=== PATIENT | male | born 1950 | race Caucasian/White ===

== ENCOUNTER → 2017-11-12 08:20 | Outpatient (CLI) | payer MEDICARE, SELFPAY ==
[2017-11-12 10:04] LABS: PSA,Total- Diagnostic 0.41 ng/mL (0.0-4.0)
== END ==
PROVIDERS: Family Provider Family Medicine; PCP Family Medicine; Visit Provider Urology
DX: C61 Malignant neoplasm of prostate (principal)
CPT/HCPCS: 36415; 84153

== ENCOUNTER → 2017-12-10 10:27 | Outpatient (CLI) | payer MEDICARE, SELFPAY ==
--- NOTE | 2017-12-10 10:42 | RAD_ITS ---
STUDY: X-RAY CHEST REASON FOR EXAM: Male, 67 years old. Preop clearance for knee surgery TECHNIQUE: PA and lateral views of the chest. COMPARISON: 04/11/2015 FINDINGS: The lungs are clear and expanded. There is no demonstrated pleural abnormality. Normal size heart. Normal mediastinum and kayleen. Normal visualized pulmonary arteries. Normal visualized aortic arch and descending thoracic aorta. Normal visualized thoracic spine. Normal visualized ribs, clavicles, and shoulders. There is no demonstrated abnormality of the visualized soft tissue structures of the upper abdomen. RAD/Chest PA and Lateral IMPRESSION: Normal x-ray examination of the chest. Electronically Signed: Jorge Blakely DO at 18:24 EDT Tel , Service support ,
--- NOTE | 2017-12-10 10:53 | EKG12_ITS ---
Test Reason : PRE OP Blood Pressure : / mmHG Vent. Rate : 051 BPM Atrial Rate : 051 BPM P-R Int : 190 ms QRS Dur : 092 ms QT Int : 412 ms P-R-T Axes : 061 005 020 degrees QTc Int : 379 ms Sinus bradycardia Low voltage QRS (LIMB LEADS) Confirmed by UMAIR MILLER ([id number]), television news video editor RADHA MANUEL ([id number]) on 12/11/2017 9:42:43 AM Referred By: Pedro Mueller Confirmed By:UMAIR MILLER
[2017-12-10 12:30] LABS: Hematocrit 41.6 % (40-54); Hemoglobin 14.4 g/dl (13.0-16.5); Mean Corp Hgb Conc 34.6 g/gl (32-36); Mean Corpuscular Hgb 30.1 pg (27.0-32.0); Mean Corpuscular Volume 86.8 fL (80-94); Mean Platelet Vol. 9.6 fl (6.2-12.0); Platelet Count 230 K/mm3 (150-450); RBC Distribution Width CV 13.2 % (11.6-14.6); RBC Distribution Width SD 41.7 fl (35.1-43.9); Red Blood Count 4.79 M/mm3 (4.6-6.2); White Blood Count 5.6 K/mm3 (4.4-11.0)
[2017-12-10 12:34] LABS: Scan Indicated on CBC? Y/N NO
[2017-12-10 12:56] LABS: ALB/GLOB Ratio 1.2 RATIO (0.9-2.4); AST(SGOT) 26 U/L (15-37); Alanine Aminotransfer ALT/SGPT 39 U/L (16-61); Albumin, Serum 3.9 g/dL (3.2-5.0); Alkaline Phosphatase 57 U/L (45-117); Anion Gap 6 (5-15); BUN 25 mg/dL (7-18); Calcium,Total 9.2 mg/dL (8.5-10.1); Chloride 103 mmol/L (98-107); Creatinine, Serum 1.25 mg/dL (0.70-1.30); EST Glomerular Filtration Rate 61 mL/min (>60); Est Glom Filt Rate - Afr Amer 74 mL/min (>60); Globulin 3.2 g/dL (2.2-4.2); Glucose 105 mg/dL (74-106); Potassium 4.2 mmol/L (3.5-5.1); Protein, Total 7.1 g/dL (6.4-8.2); Sodium Level 139 mmol/L (136-145)
== END ==
PROVIDERS: Family Provider Family Medicine; PCP Family Medicine; Visit Provider Orthopaedic Surgery
DX: Z01.818 Encounter for other preprocedural examination (principal); F17.200 Nicotine dependence, unspecified, uncomplicated
CPT/HCPCS: 36415; 71046; 80053; 85027; 93005

== ENCOUNTER → 2018-08-23 07:48 | Outpatient (CLI) | payer MEDICARE, SELFPAY ==
[2018-05-01 08:30] VITALS: BMI 28.5
[2018-08-23 09:01] LABS: AST(SGOT) 18 U/L (15-37); Alanine Aminotransfer ALT/SGPT 31 U/L (16-61); Albumin, Serum 3.6 g/dL (3.2-5.0); Alkaline Phosphatase 71 U/L (45-117); Bilirubin, Direct 0.12 mg/dL (0.00-0.30); Cholesterol 139 mg/dL (200); Globulin 3.3 g/dL (2.2-4.2); High Density Lipoprotein 43 mg/dL; Protein, Total 6.9 g/dL (6.4-8.2); Triglycerides 104 mg/dL; Very Low Density Lipoprotein 21 mg/dL (5-40)
== END ==
PROVIDERS: Family Provider Family Medicine; PCP Family Medicine; Referring Provider Internal Medicine Cardiovascular Disease; Visit Provider Internal Medicine Cardiovascular Disease
DX: E78.5 Hyperlipidemia, unspecified (principal); Z79.899 Other long term (current) drug therapy
CPT/HCPCS: 36415; 80061; 80076

== ENCOUNTER → 2018-12-16 07:59 | Outpatient (CLI) | payer MEDICARE, SELFPAY ==
[2018-10-20 08:51] VITALS: BMI 28.7
[2018-12-16 08:35] LABS: Absolute Lymphocyte Count 1.05 X10^3/ul (0.83-4.51); Absolute Neutrophil Count 3.4 X10^3/uL (2.0-7.7); Basophil# 0.03 X10^3/uL; Basophil% 0.6 % (0-1); Eosinophil# 0.19 X10^3/uL; Eosinophils% 3.8 % (0-5); Hematocrit 41.2 % (40-54); Hemoglobin 14.2 g/dl (13.0-16.5); Lymphocyte # 1.05 X10^3/ul (4.0); Lymphocyte % 20.8 % (19-41); Mean Corp Hgb Conc 34.5 g/gl (32-36); Mean Corpuscular Hgb 29.8 pg (27.0-32.0); Mean Corpuscular Volume 86.4 fL (80-94); Mean Platelet Vol. 9.7 fl (6.2-12.0); Monocyte# 0.37 X10^3/uL; Monocyte% 7.3 % (0-10); Neutrophil # 3.37 X10^3/uL (2.7-7.7); Neutrophil % 66.7 % (47-70); Platelet Count 210 K/mm3 (150-450); RBC Distribution Width CV 13.2 % (11.6-14.6); RBC Distribution Width SD 42.1 fl (35.1-43.9); Red Blood Count 4.77 M/mm3 (4.6-6.2); White Blood Count 5.1 K/mm3 (4.4-11.0)
[2018-12-16 08:38] LABS: POSITIVE COUNT NO; POSITIVE DIFFERENTIAL NO; POSITIVE MORPHOLOGY NO
[2018-12-16 09:07] LABS: ALB/GLOB Ratio 1.3 RATIO (0.9-2.4); AST(SGOT) 20 U/L (15-37); Alanine Aminotransfer ALT/SGPT 35 U/L (16-61); Albumin, Serum 3.9 g/dL (3.2-5.0); Alkaline Phosphatase 67 U/L (45-117); Anion Gap 5 (5-15); BUN 17 mg/dL (7-18); BUN/Creat Ratio 14.9 RATIO (10-20); Calcium,Total 8.8 mg/dL (8.5-10.1); Chloride 103 mmol/L (98-107); Cholesterol 134 mg/dL (200); Creatinine, Serum 1.14 mg/dL (0.70-1.30); EST Glomerular Filtration Rate 68 mL/min (>60); Est Glom Filt Rate - Afr Amer 82 mL/min (>60); Glucose 120 mg/dL (74-106); High Density Lipoprotein 38 mg/dL; Potassium 4.1 mmol/L (3.5-5.1); Protein, Total 6.9 g/dL (6.4-8.2); Sodium Level 140 mmol/L (136-145); Triglycerides 109 mg/dL
[2018-12-16 09:08] LABS: PSA,Total - Annual Screen 0.42 ng/mL (0.00-4.00); PSA,Total- Diagnostic 0.42 ng/mL (0.0-4.0); T4 Free Direct 1.02 ng/dL (0.76-1.46); Thyroid Stim Hormone (TSH) 2.36 uIU/mL (0.358-3.74); Very Low Density Lipoprotein 22 mg/dL (5-40)
[2018-12-16 14:26] LABS: Hemoglobin A1c 5.5 % (4.2-6.3)
== END ==
PROVIDERS: Family Provider Family Medicine; PCP Family Medicine; Referring Provider Urology; Visit Provider Urology
DX: Z00.01 Encounter for general adult medical examination with abnormal findings (principal); C61 Malignant neoplasm of prostate; R97.20 Elevated prostate specific antigen [PSA]; I10 Essential (primary) hypertension; R00.1 Bradycardia, unspecified; R73.01 Impaired fasting glucose; Z12.5 Encounter for screening for malignant neoplasm of prostate
CPT/HCPCS: 36415; 80053; 80061; 83036; 84153; 84439; 84443; 85025; G0103

== ENCOUNTER → 2019-05-01 08:06 | Outpatient (CLI) | payer MEDICARE, SELFPAY ==
[2018-10-20 08:51] VITALS: BMI 28.7
[2019-04-27 08:43] VITALS: BMI 27.4
--- NOTE | 2019-05-01 08:08 | CT_ITS ---
STUDY: LOW DOSE CT LUNG CANCER SCREENING REASON FOR EXAM: Male, 69 years old. Lung cancer screening, history of prostate cancer RADIATION DOSAGE (If Supplied By Facility): CTDIvol = ( 3.02 ) mGy, DLP = ( 108.72 ) mGycm TECHNIQUE: No contrast was administered. Low dose technique was utilized (average mAS-38 and kVp 120). 1.25 mm axial source images with a slice interval of 1.25-mm were reconstructed in lung windows. 2.5 mm axial source images with a slice interval of 2.5-mm were reconstructed in lung windows. 5.0 mm axial source images with a slice interval of 5.0-mm were reconstructed in soft tissue windows. Nodule measured using lung windows on PACS and/or independent workstation with automated measurement of minimum and maximum diameter. Nodule measurement reported as average diameter rounded to the nearest whole number. Growth is defined as an increase ins size of greater than 1.5 mm. COMPARISON: None. Findings: There is a 1 cm posterior segment left upper lobe lateral region groundglass nodule. There is a right upper lobe superior segment pleural contacting irregular less than 1 cm elongated branching nodule, likely atelectasis/scar. There are scattered pleural contacting the irregular scars/atelectasis in the lingula and right upper and right middle lobes. There are no focal high risk findings. Central airways are patent. Pleural surfaces are intact. Osseous structures are intact. CT/Low Dose CT Lung Screening IMPRESSION: 1. No high-risk findings. Presumed scattered scars/focal atelectasis. 2. Left upper lobe 1 cm ground glass nodule, LUNG-RADS category 2. 3. Follow-up in one year is advised. IMPORTANT NOTES FOR USE: ACR Lung-RADS Version 1.0 Assessment Categories Release Date: December 07, 2013 Category: Coded 0-4 bases on nodule(s) with highest degree of suspicion. Negative screen is defined as categories 1 and 2; a positive screen is defined as categories 3 and 4. Category 3 and 4A nodules that are unchanged on interval CT should be coded as category 2, and individuals returned to screening in 12 months. Category 4X: Category 3 or 4 nodules with additional imaging findings that increase the suspicion of lung cancer, such as spiculation, GGN that doubles in size in 1 year, enlarged lymph notes, etc. Category Modifiers: S (significant finding unrelated to lung cancer) and C (prior history of treated lung cancer) may be added to the 0-4 Lung-RADS Electronically Signed: Osvaldo Valles, at 17:59 EDT Tel , Service support ,
== END ==
PROVIDERS: Family Provider Family Medicine; PCP Family Medicine; Referring Provider Radiology Radiation Oncology; Visit Provider Radiology Radiation Oncology
DX: Z87.891 Personal history of nicotine dependence (principal)
CPT/HCPCS: G0297

== ENCOUNTER → 2019-05-22 14:53 | Outpatient (CLI) | payer MEDICARE, SELFPAY ==
[2019-04-27 08:43] VITALS: BMI 27.4
--- NOTE | 2019-05-22 15:05 | EKG12_ITS ---
Test Reason : PRE-OP Blood Pressure : / mmHG Vent. Rate : 048 BPM Atrial Rate : 048 BPM P-R Int : 182 ms QRS Dur : 090 ms QT Int : 422 ms P-R-T Axes : 028 -01 020 degrees QTc Int : 376 ms Marked sinus bradycardia Abnormal ECG Confirmed by SNOW OMER, ANA ([id number]), videotape editor RADHA MANUEL ([id number]) on 05/27/2019 8:39:09 AM Referred By: Jose Enrique Ramey Confirmed By:ANA ADAMSON MD
[2019-05-22 15:19] LABS: Hematocrit 40.6 % (40-54); Hemoglobin 13.8 g/dL (13.0-16.5); Mean Corpuscular Hgb 29.7 pg (27.0-32.0); Mean Corpuscular Volume 87.3 fL (80-94); Mean Platelet Vol. 9.3 fl (6.2-12.0); Platelet Count 211 K/mm3 (150-450); RBC Distribution Width CV 13.4 % (11.6-14.6); RBC Distribution Width SD 42.8 fl (35.1-43.9); Red Blood Count 4.65 M/mm3 (4.6-6.2); White Blood Count 5.6 K/mm3 (4.4-11.0)
[2019-05-22 15:29] LABS: Anion Gap 6 (5-15); BUN 17 mg/dL (7-18); Calcium,Total 9.2 mg/dL (8.5-10.1); Chloride 104 mmol/L (98-107); Creatinine, Serum 1.13 mg/dL (0.70-1.30); EST Glomerular Filtration Rate 68 mL/min (>60); Est Glom Filt Rate - Afr Amer 83 mL/min (>60); Glucose 97 mg/dL (74-106); Potassium 3.8 mmol/L (3.5-5.1); Sodium Level 139 mmol/L (136-145)
== END ==
PROVIDERS: Family Provider Family Medicine; PCP Family Medicine; Referring Provider Physician Assistant; Visit Provider Physician Assistant
DX: Z01.818 Encounter for other preprocedural examination (principal); Z01.810 Encounter for preprocedural cardiovascular examination
CPT/HCPCS: 36415; 80048; 85027; 93005

== ENCOUNTER → 2020-01-20 09:23 | Outpatient (CLI) | payer MEDICARE, SELFPAY ==
[2019-11-10 14:25] VITALS: BMI 27.4
[2020-01-20 12:47] LABS: PSA,Total - Annual Screen 0.42 ng/mL (0.00-4.00)
== END ==
PROVIDERS: PCP Family Medicine; Visit Provider Family Medicine
DX: Z12.5 Encounter for screening for malignant neoplasm of prostate (principal)
CPT/HCPCS: 36415; 84153; G0103

== ENCOUNTER → 2020-02-19 09:56 | Outpatient (CLI) | payer MEDICARE, SELFPAY ==
[2020-02-19 09:05] VITALS: BMI 27.1
[2020-02-19 11:13] LABS: AST(SGOT) 18 U/L (15-37); Alanine Aminotransfer ALT/SGPT 35 U/L (16-61); Alkaline Phosphatase 73 U/L (45-117); Bilirubin, Direct 0.16 mg/dL (0.00-0.30); Cholesterol 141 mg/dL (200); Globulin 3.1 g/dL (2.2-4.2); High Density Lipoprotein 38 mg/dL; Protein, Total 7.1 g/dL (6.4-8.2); Triglycerides 98 mg/dL; Very Low Density Lipoprotein 20 mg/dL (5-40)
== END ==
PROVIDERS: PCP Family Medicine; Referring Provider Internal Medicine Cardiovascular Disease; Visit Provider Internal Medicine Cardiovascular Disease
DX: E78.00 Pure hypercholesterolemia, unspecified (principal)
CPT/HCPCS: 36415; 80061; 80076

== ENCOUNTER → 2020-03-03 05:59 | Outpatient (CLI) | payer MEDICARE, SELFPAY ==
[2020-02-19 09:05] VITALS: BMI 27.1
[2020-02-24 08:40] VITALS: BMI 27.1
--- NOTE | 2020-03-03 06:00 | ECHOD_ITS ---
Reason For Study: CHEST PAIN Procedure This was a 2D Doppler, Color Flow transthoracic echocardiogram. Exam performed in department. Left Ventricle Normal LV size. Left ventricular systolic function is normal. The estimated ejection fraction is 55 %. The global longitudinal strain = -18 % (normal). No evidence for diastolic dysfunction. Right Ventricle Normal RV size. Normal systolic function. Atria Normal left atrium. Normal right atrium. No doppler evidence for ASD. Mitral Valve There is no mitral annular calcification. Normal mitral valve. Trivial mitral valve insufficiency. Tricuspid Valve Normal tricuspid valve. Trivial tricuspid valve insufficiency. Right ventricular systolic pressure estimated to be 32 mmHg. Aortic Valve Trisinus/trileaflet aortic valve. Mild focal aortic valve thickening. Pulmonic Valve The pulmonic valve is not well visualized. Great Vessels Normal sized aortic root. Pericardium/Pleural No pericardial effusion. MMode/2D Measurements & Calculations LVIDd: 4.2 cm IVSd: 0.80 cm Ao root diam: 3.5 cm LVIDs: 3.0 cm LVPWd: 0.82 cm RVDd: 3.2 cm FS: 28.6 % LAV(MOD-bp): 52.2 ml LVAd ap4: 33.7 cm2 LA A4 area: 16.8 cm2 LAV(MOD-bp) Indexed: 25.1 ml/m2 EDV(MOD-sp4): 102.5 ml LAV(MOD-sp2): 61.1 ml EDV(sp4-el): 107.7 ml LAV(MOD-sp4): 43.6 ml LA dimension(2D): 3.7 cm RA A4 area: 15.5 cm2 Time Measurements MV dec time: 0.28 sec Doppler Measurements & Calculations MV E max nathaniel: 75.8 cm/sec Lat Peak E' Nathaniel: 9.4 cm/sec Med Peak E' Nathaniel: 7.6 cm/sec MV A max nathaniel: 58.6 cm/sec E/E' lat: 8.1 E/E' med: 9.9 MV E/A: 1.3 Ao V2 max: 124.8 cm/sec LV V1 max: 111.0 cm/sec PA V2 max: 93.2 cm/sec Ao max P.2 mmHg LV V1 max P.9 mmHg TR max nathaniel: 268.3 cm/sec TR max P.8 mmHg Interpretation Summary Left ventricular systolic function is normal. The estimated ejection fraction is 55 %. The global longitudinal strain = -18 % (normal). Trivial mitral valve insufficiency. Trivial tricuspid valve insufficiency. Mild focal aortic valve thickening. Right ventricular systolic pressure estimated to be 32 mmHg. No evidence for diastolic dysfunction. Ordering Physician: Khris Gardiner Referring Physician: RHIANNON DICKSON Performed By: Florence Ram, LESLEY, RVT
--- NOTE | 2020-03-03 17:58 | STRESSREP ---
Stress Test Report Date: 03-03-2020 Procedure: Exercise tolerance test/imaging study Indications: Shortness of breath/dyspnea on exertion; chest pain Consent: Per the patient Procedure: The patient exercised on a Alfred protocol for 6 minutes and 14 seconds completing Stage II and 14 seconds of Stage III achieving a peak heart rate of 129 bpm (86 % predicted maximal heart rate) with a peak blood pressure 170/68 mmHg and a peak MET capacity of 7 METs. The baseline ECG demonstrated sinus bradycardia. The peak exercise ECG demonstrated somatic/motion artifact with no obvious ECG changes. There were no cardiac dysrhythmias pretest, during exercise, or recovery. The functional capacity was considered average. There was no complaint of chest discomfort during exercise or recovery. The examination was discontinued secondary to fatigue. Impression: 1. Technically adequate (percent predicted maximal heart rate greater than 85%) exercise tolerance test 2. Peak exercise ECG with somatic/motion artifact with no obvious ECG changes 3. There were no cardiac dysrhythmias pretest, during exercise, or recovery 4. Nuclear images pending Myocardial perfusion imaging study: Technique: The patient was injected with 14.8 mCi of technetium 99m Cardiolite and subsequently rest SPECT Cardiolite nuclear imaging was obtained in the horizontal long, vertical long, and short axis views. The patient exercised on a Alfred protocol for 6 minutes and 14 seconds completing Stage II and 14 seconds of Stage III achieving a peak heart rate of 129 bpm (86 % predicted maximal heart rate) with a peak blood pressure 170/68 mmHg and a peak MET capacity of 7 METs. The patient was injected with 44.3 mCi of technetium 99m Cardiolite and subsequently stress SPECT Cardiolite nuclear imaging was obtained in the horizontal long, vertical long, and short axis views. A gated Cardiolite study at peak stress was obtained. Interpretation: Rest and stress SPECT Cardiolite nuclear imaging status post realignment, normalization, and attenuation correction, demonstrates the appearance of relative uniform tracer uptake and myocardial perfusion appearing within normal limits. There is end systolic thickening and brightening. The gated Cardiolite study demonstrates myocardial thickening and inward wall motion. The reported LVEF is 70 %. Impression: 1. Rest and stress SPECT Cardiolite nuclear imaging demonstrate relative uniform tracer uptake and myocardial perfusion appearing within normal limits. 2. The gated Cardiolite study reports an LVEF of 70 %. This note was generated with [employer] software. It may contain incorrect words, spelling, and punctuation that were not noted in checking the note before signing.
== END ==
PROVIDERS: PCP Family Medicine; Referring Provider Internal Medicine Cardiovascular Disease; Visit Provider Internal Medicine Cardiovascular Disease
DX: R07.9 Chest pain, unspecified (principal); R06.09 Other forms of dyspnea; I20.1 Angina pectoris with documented spasm
CPT/HCPCS: 78452; 93017; 93306; A9500; A4216

== ENCOUNTER 2020-03-14 10:07 | Day surgery (SDC) | payer MEDICARE, SELFPAY ==
[2020-02-24 08:40] VITALS: BMI 27.1
--- NOTE | 2020-03-14 | LES_PTH ---
PATIENT: JUAN ANTONIO BRYANT LOC: [facility] [place][id number] AGE/SX: 70/M ROOM: RE03/14/[address]: Dr. Ld Andre MD : 1950 BED: DIS: 03/14/2020 SPEC #: [id number] RECD: 03/14/20 13:42 STATUS: BRETT RETelly #: [id number] RODRIGUEZ: 03/14/20 00:[address]: Ld Andre DEPT: SURGICAL PATHOLOGY RECD BY: Yoli Moore ENTERED: 03/14/20 14:13 SP TYPE: Lesion OTHR DR: Dr. Artis Lemus DO Tissues: A - Skin of lip, NOS B - Skin of lip, NOS Procedures: Frozen Section (charge) Surgery Specimen Level IV HEADER OPERATION: Excision lesion lower lip with frozen section, lip flap PRE-OP DIAGNOSIS: 1.2 cm lesion left lower lip near commissure TISSUE SUBMITTED: A - Lesion left lower lip, FS at 1339, B - Basal cell carcinoma lower lip FROZEN SECTION DIAGNOSIS A. Skin lesion, left lower lip, shave biopsy: Basal cell carcinoma extending to based lesion margin. AM:syed 03/14/20 Case has been reviewed in consultation with Dr. Camarena who concurs with the above diagnosis. IDC:SJ MICROSCOPIC DIAGNOSIS A. Skin lesion, left lower lip, shave biopsy: Basal cell carcinoma extending to the deep resection margin. Solar elastosis. B. Basal cell carcinoma lower lip, excision: Basal cell carcinoma. Recent mucosal ulceration. Solar elastosis. See comment. AM:syed 03/16/20 COMMENT B. The lesion measures 8 mm in greatest dimension (from slides) and is completely excised in the planes examined. Case has been reviewed in consultation with Dr. Camarena who concurs with the above diagnosis. IDC:SJ MICROSCOPIC DESCRIPTION Slides are reviewed. GROSS DESCRIPTION A - Received fresh for frozen section consultation labeled with the patient's name is a specimen designated left lower lip skin. The specimen consists of a 1.2 cm discoid shaved skin with an average thickness of 1 mm. The specimen is inked, trisected and totally submitted in one block for frozen section consultation. / AM:syed 03/15/20 B - Received in fixative is one container labeled with the patient's name is a specimen designated basal cell carcinoma left lower lip. The specimen consists of a piece of guerrero-white skin ellipse measuring 2.6 x 1.5 cm and up to 1 cm in thickness. A suture is present at the tip, presumed to be 12 o'clock. The specimen is inked as follows: sutured tip, presumed to be 12 o'clock - yellow, opposite tip - 6 o'clock - green, 3 o'clock margin - black and 9 o'clock margin - blue. An area of ulceration is noted measuring 1?cm in greatest dimension, consistent with site of specimen A. In the container are three pieces of tanwhite skin measuring 0.6 x 0.1 x 0.1 cm and 1 x 0.2 x 0.2 cm and 1 x 0.5 x 0.3 cm. The largest of one?of the additional pieces is bisected. The entire specimen is submitted in four cassettes as follows: 13 - largest piece of skin (1 containing tip and 2 rest of the largest piece), 4 - additional smaller pieces. / SJ:syed 03/15/20 TC:0 CPT: 14431 x2, 45617
--- NOTE | 2020-03-14 09:17 | PCM.HP.BLA ---
History and Physical Date of Admission: 03/14/20 HISTORY OF PRESENT ILLNESS 70 year old man presents with a lesion on his left lower lip near the commissure that has increased in size over the last year and has become more raised in configuration and has developed irregular borders. He denies trauma. He denies infection. He denies fever. He states he is scheduled for a stress test on 03/03/20. He presents at this time for further evaluation and treatment. PAST MEDICAL HISTORY Neoplasm of skin of lip Pure hypercholesterolemia Essential hypertension Bradycardia Coronary artery spasm Back problem Hearing problem Diverticulitis GERD (gastroesophageal reflux disease) History of prostate cancer Chest pain Dyspnea History of left heart catheterization (LHC) Hyperlipidemia Hypertension PAST SURGICAL HISTORY appendectomy knee surgery left knee surgery right knee surgery left heart catheterization ALLERGIES Sulfa (Sulfonamide Antibiotics) MEDICATIONS Meloxicam [Mobic] lisinopril-hydrochlorothiazide omeprazole nitroglycerin FAMILY HISTORY Father - Myocardial infarction, Heart disease Mother - CVA (cerebral vascular accident), CAD (coronary artery disease) Brother - Myocardial infarction SOCIAL HISTORY Smoking Status: Former smoker how long ago did patient quit smokin alcohol intake: former year quit: 2006 substance use type: does not use REVIEW OF SYSTEMS General - Denies fever, fatigue, and weight loss. Eyes - Denies cataracts and glaucoma. ENT - Denies nasal congestion and sore throat. Endocrine - Denies excessive thirst and urination. Skin - Denies skin cancer. Has enlarging lesion left lower lip near commissure. Musculoskeletal - Has joint pain, joint stiffness, weakness of muscles and joints, back pain. Denies arthritis. Neuro - Denies headaches. Has lightheadedness. Cardiovascular - Denies chest pain, fatigue, and shortness of breath with exertion. Psych - Denies anxiety and depression. Respiratory - Denies chronic cough and shortness of breath. Gastrointestinal - Denies nausea, vomiting, diarrhea, and constipation. Hematologic - Denies abnormal bruising and bleeding. Genitourinary - Denies hematuria and urinary frequency. PHYSICAL EXAMINATION General - Alert and Oriented HEENT - PERRL. EOMI. Throat is clear. On the left lower lip extending to the raulito border is a nodular lesion that measures 1.2 cm. Raised in configuration. Has irregular borders. No ulceration. Lesion is nontender. The lesion is located 1.2 cm from the commissure. The length of the lower lip is 7 cm. No other suspicious lesions noted. Neck - Supple and nontender. No cervical adenopathy. No suspicious lesions noted. Lungs - Clear to auscultation. Heart - Regular rate and rhythm. Abdomen - Soft and nondistended. Extremities - FROM. No axillary adenopathy. Radial pulses are palpable. No suspicious lesions noted. Neuro - CN II-XII grossly intact. Psych - Normal mood and affect. ASSESSMENT 1. 1.2 cm lesion left lower lip extending to the raulito border and near the commissure, suspicious for carcinoma. 2. Former smoker. PLAN The lesion left lower lip near the commissure is clinically suspicious for carcinoma. Recommend excision of the lesion in an intradermal fashion and send it to Pathology for analysis to rule out carcinoma. If basal cell carcinoma is present, then further excision will be done with lip flaps reconstruction. If squamous cell carcinoma is present, then further excision will be done, but no reconstruction will be done initially until the final Pathology report is available. To maintain oral continuity, would temporarily secure the defect with acellular dermal matrix graft. Once the Pathology is available, then complex lip reconstruction can be performed with lip flaps. Also discussed with the patient that the excision can be done with Moh's micrographic surgery but would need to be done out of town. He prefers to stay local in town at this time. Surgery can be done on an outpatient basis under local anesthesia with IV sedation. He understands that multiple procedures may be necessary. Patient was informed of the risks and complications of the procedure including alternatives to surgery. These were discussed with the patient personally. Patient voices understanding and wishes to proceed. Some of the risks and complications were included in a form from the [place] [employer]. We discussed the current risks associated with COVID-19. While it is understood that there is a community spread of COVID-19, the risk of [place] COVID-19 while at [facility] ([facility]) is very low; however, the risk cannot be completely mitigated because of the community spread of the disease. We discussed in detail the risk of exposure to and/or potential harm posed by the COVID-19 virus with having a surgery/procedure at this time versus the risk of delaying the surgery/procedure. It is not possible to know either the risk of delaying the surgery or procedure or chance of getting an infection with perfect accuracy, but a joint decision was made to proceed at this time with the scheduled surgery/procedure as indicated on the consent form. Patient was notified that we will need to comply with any screening or testing WC wishes to perform or that surgery may be delayed for any positive results. Discussed with the patient that I was tested for COVID-19 on 02/11/20 which was negative and on 02/25/20 which was negative. My testing regimen at this time is to be COVID-19 tested every 2 weeks or so. I was recently tested on 03/10/20, and that test was negative. Procedure Criteria Procedure Type: Elective COVID Risk Discussion: The surgeon/proceduralist and patient have discussed in detail the risk of exposure to and/or potential harm posed by the COVID-19 virus with having a surgery/procedure at this time versus the risk of delaying the surgery/procedure. It is not possible to know either the risk of delaying the surgery or procedure or chance of getting an infection with perfect accuracy, but a joint decision was made between the patient and the surgeon/proceduralist to proceed at this time with the scheduled surgery/procedure as indicated on the consent form.
[2020-03-14 12:05] VITALS: BP 148/80; PULSE 45; RESP 16; TEMP 36.5; O2SAT 100; BMI 27.7
[2020-03-14] MEDS: Lactated Ringers 1,000 ML 100 ML IV (12:30)
[2020-03-14] MEDS: Mupirocin Ointment 22gm Tube 1 APPLIC (14:45)
--- NOTE | 2020-03-14 14:48 | PCM.OPRPT ---
Report of Operation Date of Procedure: 03/14/20 Pre-Operative Diagnosis: 1. 1.2 cm lesion left lower lip extending to the raulito border and near the commissure, suspicious for carcinoma. 2. Former smoker. Post-Operative Diagnosis: 1. 1.2 cm basal cell carcinoma left lower lip extending to the raulito border and near the commissure. 2. Former smoker. Surgery/Procedure Performed:: V-excision 1.2 cm basal cell carcinoma left lower lip extending to the raulito border and near the commissure with 3 cm complex closure repair. Description of Surgical Findings:: 70 year old man presents with a lesion on his left lower lip near the commissure that has increased in size over the last year and has become more raised in configuration and has developed irregular borders. He denies trauma. He denies infection. He denies fever. He states he is scheduled for a stress test on 03/03/20. Patient was informed of the risks and complications of the procedure including alternatives to surgery. These were discussed with the patient personally. Patient voices understanding and wishes to proceed. Some of the risks and complications were included in a form from the [employer] [employer]. Frozen section left lower lip near the commissure - basal cell carcinoma. synthetic staple extruder: None Type of Anesthesia:: General Specimen's removed: 1. Lesion left lower lip extending to the raulito border and near the commissure to Pathology as a frozen section. 2. Basal cell carcinoma left lower lip extending to the raulito border and near the commissure to Pathology. Drains: None. Estimated Blood Loss (mL): 10 ml. Description of Procedure: Patient was taken to OR in supine position and was given IV sedation. The face was prepped and draped in the usual fashion. SCD's were placed for DVT prophylaxis. Perioperative antibiotics were given intravenously. For the procedure, I wore an N95 mask and wore proper eyewear protection. The lesion left lower lip extending to raulito border and near the commissure was infiltrated with xylocaine and epinephrine. After waiting 5 minutes for the anesthetic to take effect, I excised the lesion in an intradermal fashion and sent it to Pathology as a frozen section for analysis to rule out carcinoma. Frozen section was positive for basal cell carcinoma. Further excision was needed, so I marked out a V-excision design extending to the labiomental crease. If additional length is needed then wound design a lip flap with the marking extending along the labiomental crease in order to advance the flap into the defect without disturbing the labiomental crease. 4 mm margin was designed in all directions thus making it a 2 cm excision. At the raulito border, the marking intersected at 90 degrees. Toward the labiomental crease, it became a V-excision. During this time, it was difficult to maintain the patient with sedation as his tongue was falling back in his mouth and obstructing him. So he was converted to a general anesthetic. The face was then re-prepped and draped in the usual fashion. A full thickness excision was performed through the skin and subcutaneous tissue and orbicularis muscle and extending onto the raulito through the mucosa and submucosa. A suture was marked at 12 oclock position for pathology orientation. The lesion was then sent to Pathology for analysis to rule out carcinoma at the margins. Hemostasis was obtained with electrocautery. This was a 2 cm lip defect with a lower lip length of 7 cm thus making it a 28% defect which can be closed primarily. A complex multilayered closure was then performed with 4-0 Chromic simple interrupted sutures for the mucosa and submucosa. The orbicularis muscle was approximated with 3-0 Vicryl figure of eight interrupted sutures to maintain oral muscular competence. The deep dermis and subcutaneous tissue was approximated with 5-0 Monocryl interrupted sutures including the raulito border. The skin was approximated with 6-0 Prolene simple interrupted sutures. The raulito border was also approximated with 6-0 Prolene interrupted suture. Steri-strips were applied to the skin portion of the repair followed by antibiotic ointment. Antibiotic ointment was also applied to the raulito sutures. Good lip contour noted. The length of the complex closure repair was 3 cm. Patient tolerated the procedure well and was sent to PACU in satisfactory condition. Patient will be sent home on antibiotics and pain medication. He will also use mouthwash after meals to minimize infection during the healing of the intra-oral mucosal sutures. He will keep his head elevated during the initial postoperative period. Patient will followup in a week for a wound check and for discussion of the pathology report and for removal of the sutures. Grafts/Implants Used: None. - Complications None. - Admit VTE Documentation VTE Present on Admission: No VTE Mechan Device Prophylaxis: SCD's VTE Pharm Prophylaxis ordered?: No Surgery Charges CPT - 51719 ICD-10 - C44.01, D49.2, Z87.891 19860 C44.01, D49.2, Z87.891
[2020-03-14 14:57] VITALS: BP 148/80; BP 162/88; PULSE 59; RESP 20; TEMP 36.1; O2SAT 100
[2020-03-14 15:00] VITALS: BP 148/78; BP 148/80; PULSE 58; RESP 16; O2SAT 98
--- NOTE | 2020-03-14 15:13 | DCINST_ITS ---
You will use the following diet at home:: No restrictions Discharge Activity: May not drive while taking narcotic pain medications., May Shower - in two days., - - keep head elevated. no heavy lifting. May shower in (days): 2 May resume sexual activity in: No Restrictions Ice area for (Minutes): 5 - as needed for facial swelling. Weight Bearing Status: Weight bearing as tolerated Lifting Restrictions: 20 lbs. Keep extremity elevated above heart level: - - elevate head. Call your doctor if your incision/area has: Continuous Slow Oozing, Sudden Increased Bleeding, Increased Pain/ Swelling, Increased Redness, Foul Smelling Discharge, Swelling at the incision site Call your doctor if you observe: Fever of 101 or Higher, Coldness, Increased Pain, Shortness of breath, Chest pain, Calf discomfort Suture Line Care: - - apply antibiotic ointment to suture line daily. Use mouthwash after meals. Cleanse incision/area with: - - may get incision wet in the shower in two days. use mouthwash after meals. Allergies/Adverse Reactions: Allergies Sulfa (Sulfonamide Antibiotics) Allergy (Verified 03/14/20 12:03) Unknown Medications to take at Discharge Meloxicam [Mobic] 15 mg PO DAILY 04/17/16 lisinopril 10 mg-hydrochlorothiazide 12.5 mg tablet 1 tab PO DAILY 10/20/18 omeprazole 20 mg capsule,delayed release 20 mg PO DAILY 10/20/18 nitroglycerin 0.4 mg sublingual tablet 0.4 mg SUBLINGUAL Q5M PRN #90 tab 11/10/19 Clindamycin HCl [Cleocin] 300 mg PO TID #15 cap 03/14/20 Diazepam [Valium] 5 mg PO BID PRN #10 tablet 03/14/20 Lactobacillus Acidophilus/Fos [Acidophilus Probiotic Tablet] 1 ea PO BID #20 tab 03/14/20 Oxycodone HCl/Acetaminophen [Percocet 5/325] 1 tab PO Q6H PRN PRN 7 Days #28 tab 03/14/20 The following prescriptions were given: Lactobacillus Acidophilus/Fos [Acidophilus Probiotic Tablet] 1 ea PO BID #20 tab Transmission Status: Pending to [facility] #30 Clindamycin HCl [Cleocin] 300 mg PO TID #15 cap Transmission Status: Pending to [facility] #[facility] Oxycodone HCl/Acetaminophen [Percocet 5/325] 1 tab PO Q6H PRN PRN 7 Days #28 tab PRN Reason: Pain Score 4-5/10 Transmission Status: Sent to [facility] #30 Diazepam [Valium] 5 mg PO BID PRN #10 tablet PRN Reason: Spasms Transmission Status: Sent to [facility] #30 Primary Care Physician: Artis Lemus DO [Primary Care Provider] - Test Results: Test results from this visit will be discussed in further detail at your follow- up appointment, if applicable. Please Follow Up With: Ld Andre MD When: one week. call [phone] for appt. Proposed Discharge Date: 03/14/20
[2020-03-14 15:17] VITALS: BP 148/80; BP 150/79; PULSE 50; RESP 16; TEMP 36.2; O2SAT 100
[2020-03-14 16:01] VITALS: BP 148/80; BP 161/93; PULSE 47; RESP 18; TEMP 36.3; O2SAT 100
== END 2020-03-14 16:03 | disposition home or self-care (01) ==
LOC: SDC 10:08 → AC 11:09
PROVIDERS: Anesthesiology; PCP Family Medicine; Referring Provider Surgery; Visit Provider Surgery
PROC: (CPT 13152; principal; 2020-03-14 13:05)
DX: C44.01 Basal cell carcinoma of skin of lip (principal); I10 Essential (primary) hypertension; E78.00 Pure hypercholesterolemia, unspecified; K21.9 Gastro-esophageal reflux disease without esophagitis; Z79.899 Other long term (current) drug therapy; Z87.891 Personal history of nicotine dependence; Z20.828 Contact with and (suspected) exposure to other viral communicable diseases
CPT/HCPCS: 00300; 13152; 40520; 87635; 88305; 88331; J7120; U0003

== ENCOUNTER 2020-06-18 10:43 | Emergency (ER) | payer MEDICARE, SELFPAY ==
[2020-05-11 08:29] VITALS: BMI 27.7
[2020-06-18 10:44] VITALS: BP 147/78; PULSE 57; RESP 20; TEMP 36.6; O2SAT 99; BMI 28.7
--- NOTE | 2020-06-18 11:09 | CT_ITS ---
STUDY: CT ABDOMEN AND PELVIS WITHOUT CONTRAST REASON FOR EXAM: Male, 70 years old. RIGHT FLANK PAIN -- HX-PROSTATE CA W/ RAD TX -- SURG-APPY RADIATION DOSAGE (If Supplied By Facility): CTDIvol = ( 8.14 ) mGy, DLP = ( 398.58 ) mGycm TECHNIQUE: Transaxial images were obtained from the dome of the diaphragm to the symphysis pubis without oral contrast, and without intravenous contrast. Sagittal and coronal images were reconstructed. Individualized dose optimization techniques were used for this CT. COMPARISON: 06/01/2016 FINDINGS: The visualized lung bases are unremarkable. The visualized portions of the heart are within normal limits. Normal liver. Normal gallbladder and extrahepatic biliary system. Normal spleen. Normal pancreas. Normal bilateral adrenal glands. Small bilateral renal calcifications likely vascular. No evidence of hydronephrosis. There is a small hiatal hernia. Nonspecific fluid-filled small bowel loops. No evidence of small bowel obstruction. Diverticulosis of the sigmoid colon. No evidence of acute diverticulitis. There is non-visualization of the appendix. There is diffuse atherosclerotic calcification of the abdominal aorta, without a demonstrated aneurysm. Normal inferior vena cava. Normal retroperitoneum. Normal urinary bladder. Radiation seeds or surgical clips in the region of the prostate. No pelvic mass is seen. Small bilateral inguinal hernias containing fat. There are diffuse degenerative changes of the visualized lumbar spine. CT/Abdomen/Pelvis without Cont IMPRESSION: 1. No evidence of urinary tract stones or hydronephrosis. 2. Small hiatal hernia. 3. Diverticulosis without evidence of acute diverticulitis. 4. Nonspecific fluid-filled small bowel loops without evidence of bowel obstruction. 5. Small bilateral inguinal hernias containing fat. Electronically Signed: Aristeo Gillis MD at 12:01 EST Tel , Service support ,
--- NOTE | 2020-06-18 11:20 | ED.VIS.GEN ---
History of Present Illness Informant: Patient Onset: Today Context: Sudden Onset Timing: Continuous Quality: Right flank sharp Location: Right flank Current Severity: Severe Maximum Severity: Severe Worsened by: Nothing Relieved by: Nothing Associated Symptoms: nausea and vomiting Narrative: 70-year-old male presents with right flank pain. It woke him up suddenly at 5 AM this morning. Sharp and stabbing. He cannot get comfortable. He radiates to his right lower quadrant. He had one episode of nonbloody emesis. No hematemesis or coffee-ground emesis. No diarrhea melena or hematochezia. No dysuria, urinary frequency urgency or hematuria. No difficulty urinating. No history of kidney stones. He has no chest pain or shortness of breath. He is not lightheaded or dizzy. He is not anticoagulation. Prior similar symptoms: No Recent Illness/Hospitalization: No <Antonio Arreguin - Last Filed: 06/18/20 11:20> <Stephen Jones - Last Filed: 06/18/20 15:46> Chief Complaint: Flank Pain Past Medical History Prior records reviewed: Yes Past Medical History: - - Hypertension hyperlipidemia and osteoarthritis Surgical History: appendectomy Lives: With Family Smoking Status: Current every day smoker Alcohol: Occasional Drugs: None <Antonio Arreguin - Last Filed: 06/18/20 11:20> <Stephen Jones - Last Filed: 06/18/20 15:46> - Allergies and Home Meds Allergies/Adverse Reactions: Allergies Sulfa (Sulfonamide Antibiotics) Allergy (Verified 06/18/20 10:46) Unknown Primary Care Physician: Artis Lemus DO [Primary Care Provider] - Review of Systems All systems negative except as indicated General: Denies: Chills, Fever, Sweats Eyes: Denies: Visual changes - bilaterally, Diplopia ENT: Denies: Rhinorrhea, Sore throat Cardiovascular: Denies: Chest pain, Palpitations Respiratory: Denies: Dyspnea, Cough, Dyspnea on exertion Gastrointestinal: Reports: Abdominal pain, Nausea, Vomiting. Denies: Diarrhea, Constipation, Melena, Hematochezia Genitourinary: Denies: Dysuria, Hematuria, Frequency Musculoskeletal: Denies: Myalgias, Arthralgias, Neck pain, Back pain, Swelling, Extremity Pain Skin: Denies: Rash, Abscess, Abrasions, Wounds Neurological: Denies: Headache, Weakness, Parasthesia, Numbness <Antonio Arreguin - Last Filed: 06/18/20 11:20> Physical Exam Vital Signs/Narrative: Vital Signs Temp Pulse Resp BP Pulse Ox 06/18/20 10:44 97.9 F 57 L 20 H 147/78 H 99 Inital Vital Signs reviewed: Yes General: Well nourished, Well developed, No Acute Distress Head: Normocephalic, Atraumatic Eyes: Perrl, EOMI ENT: Moist mucous membranes, No rhinorrhea Neck: Supple, Nontender Cardiovascular: Regular rate, Regular rhythm, No murmurs Respiratory: No distress, CTA bilaterally, Chest nontender Abdomen: Soft, Nontender, Nondistended, Normal bowel sounds Back: Nontender, Normal Inspection. Negative for: CVA tenderness Extremities: Nontender, No edema, - - Normal palpable peripheral pulses all 4 extremities Skin: Normal color, No rash Neurological: Alert, Oriented x3, Cranial nerves II-XII grossly intact, Normal Strength, Normal Sensation Psychological: Normal affect, Normal Mood <Antonio Arreguin - Last Filed: 06/18/20 11:20> Vital Signs/Narrative: Vital Signs Temp Pulse Resp BP Pulse Ox 06/18/20 10:44 97.9 F 57 L 20 H 147/78 H 99 <Stephen Jones - Last Filed: 06/18/20 15:46> Diagnostic/Tx/Re-eval Impressions Abdomen/Pelvis CT 06/18/20 11:09 IMPRESSION: 1. No evidence of urinary tract stones or hydronephrosis. 2. Small hiatal hernia. 3. Diverticulosis without evidence of acute diverticulitis. 4. Nonspecific fluid-filled small bowel loops without evidence of bowel obstruction. 5. Small bilateral inguinal hernias containing fat. Electronically Signed: Aristeo Gillis MD at 12:01 EST Tel , Service support , 06/18/20 11:09 Abdomen/Pelvis without Cont [CT] Stat Laboratory Results 06/18/20 06/18/20 06/18/20 10:54 11:15 11:15 WBC 7.2 RBC 4.58 L Hgb 13.6 Hct 41.4 MCV 90.4 MCH 29.7 MCHC 32.9 RDW Std Deviation 44.0 H RDW Coeff of Robert 13.3 Plt Count 210 MPV 9.3 Immature Gran % (Auto) 1.100 H Neut % (Auto) 90.7 H Lymph % (Auto) 5.4 L [place] % (Auto) 2.2 Eos % (Auto) 0.3 Baso % (Auto) 0.3 Absolute Neuts (auto) 6.5 Absolute Lymphs (auto) 0.39 L Nucleated RBC % 0 Sodium 141 Potassium 4.0 Chloride 106 Carbon Dioxide 30.0 Anion Gap 5 BUN 16 Creatinine 1.08 Estim Creat Clear Calc 64.78 Est GFR (MDRD) Af Amer 87 Est GFR (MDRD) Non-Af 72 BUN/Creatinine Ratio 14.8 Glucose 158 H Calcium 9.1 Urine Color Yellow Urine Clarity Clear Urine pH 7.0 Ur Specific [place] 1.015 Urine Protein 15 H Urine Glucose (UA) Normal Urine Ketones Negative Urine Occult Blood Negative Urine Nitrite Negative Urine Bilirubin Negative Urine Urobilinogen 1 H Ur Leukocyte Esterase 25 H Urine RBC 0 SEEN Urine WBC 0-5 SEEN Ur Squamous Epith Cells 0-5 SEEN Urine Bacteria RARE Urine Mucus 2+ - Medical Decision Making Seen and evaluated independently and in conjunction with physician lead recreation assistant. Agree with notes above unless documented otherwise. Patient awoke with sudden right flank pain. No radiation into the groin or testicles. Never had this before. Pain is improved at the time of evaluation, work-up is unremarkable, he has mild tenderness in the right mid abdomen, and CT shows no acute abnormality. Differential includes a kidney stone that the patient passed prior to imaging, in addition to multiple possible etiologies of intestinal pain. Will prescribe him some Bentyl in case it does not resolve, we discussed reasons to return, he is comfortable with that plan. <Stephen Jones - Last Filed: 06/18/20 15:46> ED Disposition <Antonio Arreguin - Last Filed: 06/18/20 11:20> <Stephen Jones - Last Filed: 06/18/20 15:46> - Plan for ED Patient: Disposition: Home or Assisted Living Diagnosis: Acute right flank pain Instructions: ED Flank Pain Uncertain Cause Referrals: Artis Lemus DO [Primary Care Provider] - 3-5 Days if not improving
[2020-06-18 11:24] LABS: Absolute Lymphocyte Count 0.39 X10^3/uL (0.83-4.51); Absolute Neutrophil Count 6.5 X10^3/uL (2.0-7.7); Basophil# 0.02 X10^3/uL; Basophil% 0.3 % (0-1); Eosinophil# 0.02 X10^3/uL; Eosinophils% 0.3 % (0-5); Hematocrit 41.4 % (40-54); Hemoglobin 13.6 g/dL (13.0-16.5); Lymphocyte # 0.39 X10^3/ul (4.0); Lymphocyte % 5.4 % (19-41); Mean Corp Hgb Conc 32.9 g/dL (32-36); Mean Corpuscular Hgb 29.7 pg (27.0-32.0); Mean Corpuscular Volume 90.4 fL (80-94); Mean Platelet Vol. 9.3 fl (6.2-12.0); Monocyte# 0.16 X10^3/uL; Monocyte% 2.2 % (0-10); NRBC Flagged by Analyzer 0 % (0-5); Neutrophil # 6.53 X10^3/uL (2.7-7.7); Neutrophil % 90.7 % (47-70); POSITIVE DIFFERENTIAL YES; Platelet Count 210 K/mm3 (150-450); RBC Distribution Width CV 13.3 % (11.6-14.6); Red Blood Count 4.58 M/mm3 (4.6-6.2); White Blood Count 7.2 K/mm3 (4.4-11.0)
[2020-06-18 11:25] LABS: Differential Indicated SCAN CRITERIA MET
[2020-06-18] MEDS: Ketorolac 15 MG/ML Vial IV (11:25)
[2020-06-18] MEDS: Ondansetron 4 MG/2 ML Vial IV (11:26)
[2020-06-18] MEDS: 0.9% Normal Saline 1,000 ML 250 ML IV (11:26)
[2020-06-18 11:38] LABS: Red Blood Cells-Urine 0 SEEN /hpf (0-5)
[2020-06-18 11:38] LABS: Anion Gap 5 (5-15); BUN 16 mg/dL (7-18); BUN/Creat Ratio 14.8 RATIO (10-20); Calcium,Total 9.1 mg/dL (8.5-10.1); Chloride 106 mmol/L (98-107); Creatinine, Serum 1.08 mg/dL (0.70-1.30); EST Glomerular Filtration Rate 72 mL/min (>60); Est Glom Filt Rate - Afr Amer 87 mL/min (>60); Estimated Creatinine Clearance 64.78 ml/min; Glucose 158 mg/dL (74-106); Sodium Level 141 mmol/L (136-145)
[2020-06-18 11:43] LABS: Color, Urine Yellow (Yellow); Glucose, Dipstick Normal (Normal); Ketone-Dipstick Negative (Negative); Leukocyte Esterase-Dipstick 25 /ul (Negative); Nitrite-Dipstick Negative (Negative); Occult Blood-Urine Negative /ul (Negative); Protein-Dipstick 15 mg/dl (Negative); Specific Gravity, Urine 1.015 (1.002-1.030); Urine Bilirubin Dipstick Negative (Negative); Urine Clarity Clear (Clear); Urine Urobilinogen 1 mg/dl (Normal)
[2020-06-18 11:49] LABS: Bacteria RARE /hpf (None Seen); Mucous, Urine 2+ /hpf (<or=2+); Squamous Epithelial Cells - UA 0-5 SEEN /hpf (0-5); White Blood Cells 0-5 SEEN /hpf (0-5)
[2020-06-18 13:06] VITALS: BP 142/68; PULSE 74; RESP 15; O2SAT 98
--- NOTE | 2020-06-18 13:18 | ED.VISSUMM ---
- ER Visit Summary Date of Service: 06/18/20 Chief Complaint: [] History of Present Illness: The patient is a 70 M [] Physical Examination: [] Test Results: [] Emergency Department Course and Treatment: [] Treatment Plan: [] Disposition: [] Impression: [] This note was generated with MyQuote[employer] dictation software. It may contain incorrect words, spelling, and punctuation that were not noted in review of the chart prior to signing ED Disposition - Plan for ED Patient: Disposition: Home or Assisted Living Diagnosis: Abdominal pain, Essential hypertension, Pure hypercholesterolemia, Former smoker Instructions: ED Unknown Causes of Abdominal Pain Male Prescriptions: Dicyclomine HCl [Bentyl] 20 mg PO TIDAC #20 cap Transmission Status: Pending to [facility] #30 Ondansetron [Zofran Odt] 4 mg PO Q8H PRN PRN #10 tab PRN Reason: Nausea Transmission Status: Pending to [facility] #30 Referrals: Artis Lemus DO [Primary Care Provider] - 2 Days
[2020-06-18 13:25] VITALS: BP 119/74; PULSE 68; RESP 15; O2SAT 98
== END 2020-06-18 13:28 | disposition home or self-care (01) ==
PROVIDERS: Emergency Provider Physician Assistant Medical; PCP Family Medicine
DX: R10.9 Unspecified abdominal pain (principal); I10 Essential (primary) hypertension; E78.00 Pure hypercholesterolemia, unspecified; M19.90 Unspecified osteoarthritis, unspecified site; F17.200 Nicotine dependence, unspecified, uncomplicated
CPT/HCPCS: 74176; 80048; 81001; 85025; 96361; 96374; 96375; 99284; J7030; A4216; J2405

== ENCOUNTER → 2020-12-16 10:27 | Outpatient (CLI) | payer MEDICARE, SELFPAY ==
[2020-12-16 09:30] VITALS: BMI 28.5
[2020-12-16 11:49] LABS: AST(SGOT) 16 U/L (15-37); Alanine Aminotransfer ALT/SGPT 30 U/L (16-61); Albumin, Serum 3.9 g/dL (3.2-5.0); Alkaline Phosphatase 76 U/L (45-117); Bilirubin, Direct 0.16 mg/dL (0.00-0.30); Cholesterol 141 mg/dL (200); High Density Lipoprotein 48 mg/dL; Protein, Total 6.9 g/dL (6.4-8.2); Triglycerides 90 mg/dL; Very Low Density Lipoprotein 18 mg/dL (5-40)
== END ==
PROVIDERS: PCP Family Medicine; Referring Provider Internal Medicine Cardiovascular Disease; Visit Provider Internal Medicine Cardiovascular Disease
DX: E78.00 Pure hypercholesterolemia, unspecified (principal)
CPT/HCPCS: 36415; 80061; 80076

== ENCOUNTER → 2020-12-22 09:11 | Outpatient (CLI) | payer MEDICARE, SELFPAY ==
[2020-12-16 09:30] VITALS: BMI 28.5
[2020-12-22 09:27] LABS: Hematocrit 42.3 % (40-54); Mean Corp Hgb Conc 33.1 g/dL (32-36); Mean Corpuscular Hgb 29.4 pg (27.0-32.0); Mean Corpuscular Volume 88.7 fL (80-94); Mean Platelet Vol. 9.2 fl (6.2-12.0); Platelet Count 215 K/mm3 (150-450); RBC Distribution Width CV 13.3 % (11.6-14.6); RBC Distribution Width SD 43.2 fl (35.1-43.9); Red Blood Count 4.77 M/mm3 (4.6-6.2); White Blood Count 5.1 K/mm3 (4.4-11.0)
[2020-12-22 09:54] LABS: Anion Gap 5 (5-15); BUN 18 mg/dL (7-18); BUN/Creat Ratio 16.1 RATIO (10-20); Chloride 104 mmol/L (98-107); Creatinine, Serum 1.12 mg/dL (0.70-1.30); EST Glomerular Filtration Rate 69 mL/min (>60); Est Glom Filt Rate - Afr Amer 83 mL/min (>60); Glucose 124 mg/dL (74-106); Sodium Level 141 mmol/L (136-145)
== END ==
PROVIDERS: PCP Family Medicine; Referring Provider Physician Assistant; Visit Provider Physician Assistant
DX: Z01.812 Encounter for preprocedural laboratory examination (principal)
CPT/HCPCS: 36415; 80048; 85027

== ENCOUNTER → 2021-03-20 08:27 | Outpatient (CLI) | payer MEDICARE, SELFPAY ==
[2020-12-16 09:30] VITALS: BMI 28.5
[2021-03-20 09:43] LABS: Hemoglobin A1c 5.4 % (3.8-5.6)
[2021-03-20 09:57] LABS: PSA,Total- Diagnostic 0.48 ng/mL (0.0-4.0)
== END ==
PROVIDERS: PCP Family Medicine; Referring Provider Family Medicine; Visit Provider Family Medicine
DX: R73.01 Impaired fasting glucose (principal); Z85.46 Personal history of malignant neoplasm of prostate
CPT/HCPCS: 36415; 83036; 84153

== ENCOUNTER → 2021-06-26 12:45 | Outpatient (CLI) | payer MEDICARE, SELFPAY ==
--- NOTE | 2021-06-26 14:23 | NEURO ---
NCS and/or EMG Patient Report Ordering Doctor: Jose Enrique Ramey DATE OF SERVICE: 06/26/21 Indication: Right hand weakness, numbness of all fingers and swelling following right rotator cuff repair. Now symptoms have largely resolved, but he continues to have intermittent numbness of digits 3-4. This is provoked by sleep or while driving. Findings: Nerve conduction studies were performed in the right upper extremity. The right median motor study recording the abductor pollicis brevis showed a normal amplitude, prolonged distal latency and borderline conduction velocity. The right ulnar motor study recording the abductor digiti minimi showed a normal amplitude, normal distal latency and normal conduction velocity. Focal slowing was present across the elbow. Right median-ulnar lumbrical / interosseous motor latencies showed a prolonged median latency compared to the ulnar. The right median sensory response recording digit two showed a normal amplitude, prolonged latency and slowed conduction velocity. The right ulnar sensory response recording digit five showed a reduced amplitude, borderline latency and mildly slowed conduction velocity. The right radial sensory response recording over the extensor snuff box showed a normal amplitude, normal latency and mildly slowed conduction velocity. The medial antebrachial cutaneous response showed a normal amplitude and conduction velocity. Needle EMG of the right upper extremity muscles was performed. No denervation was seen in any muscle. Motor units in the first dorsal interosseous and abductor pollicis brevis were large amplitude and long duration with normal recruitment. All other motor unit morphology, activation and recruitment patterns were normal. Impression: This is a mildly abnormal study. 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 These findings are compatible with the clinical diagnosis of carpal tunnel syndrome. 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 There is no active denervation to suggest ongoing motor axon loss secondary to these entrapments. Ramesh Coleman D.O. Multi Select Codes Neurology Neurology Interp Codes: 74306-28 Musc test done w/n test comp (interp) and 51999-99 Nrv cndj test 7-8 studies (interp)
== END ==
PROVIDERS: PCP Family Medicine; Referring Provider Physician Assistant; Visit Provider Physician Assistant
DX: R20.2 Paresthesia of skin (principal)

== ENCOUNTER 2021-08-30 08:05 | Outpatient (CLI) | payer MEDICARE, SELFPAY ==
--- NOTE | 2021-08-30 08:17 | EKG12_ITS ---
Test Reason : PRE OP Blood Pressure : / mmHG Vent. Rate : 056 BPM Atrial Rate : 056 BPM P-R Int : 188 ms QRS Dur : 082 ms QT Int : 394 ms P-R-T Axes : 074 061 064 degrees QTc Int : 380 ms Sinus bradycardia Septal infarct , age undetermined Abnormal ECG Confirmed by JOHN OMER, NATALEE ([id number]), sports editor CORA DELUNA ([id number]) on 08/31/2021 9:03:39 AM Referred By: Jose Enrique Ramey Confirmed By:NATALEE LOPEZ MD
[2021-08-30 08:30] LABS: Hematocrit 45.1 % (40-54); Hemoglobin 14.6 g/dL (13.0-16.5); Mean Corp Hgb Conc 32.4 g/dL (32-36); Mean Corpuscular Hgb 28.8 pg (27.0-32.0); Mean Platelet Vol. 9.2 fl (6.2-12.0); Platelet Count 231 K/mm3 (150-450); RBC Distribution Width CV 13.2 % (11.6-14.6); RBC Distribution Width SD 42.8 fl (35.1-43.9); Red Blood Count 5.07 M/mm3 (4.6-6.2); White Blood Count 5.3 K/mm3 (4.4-11.0)
[2021-08-30 08:53] LABS: Anion Gap 4 (5-15); BUN 18 mg/dL (7-18); BUN/Creat Ratio 15.8 RATIO (10-20); Calcium,Total 9.3 mg/dL (8.5-10.1); Chloride 106 mmol/L (98-107); Creatinine, Serum 1.14 mg/dL (0.70-1.30); EST Glomerular Filtration Rate 67 mL/min (>60); Est Glom Filt Rate - Afr Amer 81 mL/min (>60); Glucose 128 mg/dL (74-106); Potassium 4.5 mmol/L (3.5-5.1); Sodium Level 141 mmol/L (136-145)
== END 2021-08-30 23:59 | disposition short-term general hospital (02) ==
LOC: PSN 08:09
PROVIDERS: PCP Family Medicine; Referring Provider Physician Assistant; Visit Provider Physician Assistant
DX: Z01.812 Encounter for preprocedural laboratory examination (principal)
CPT/HCPCS: 36415; 80048; 85027; 93005

== ENCOUNTER 2021-10-23 11:44 | Outpatient (CLI) | payer MEDICARE, SELFPAY ==
--- NOTE | 2021-10-23 11:50 | RAD_ITS ---
INDICATION: Chest Pain EXAMINATION/TECHNIQUE: X-RAY - XR Chest 2 Views COMPARISON: Chest radiograph from 12/10/2017 FINDINGS: Support devices: None No focal consolidations, effusions, or sizable pneumothorax. Heart size is stable. No acute findings in the bones or soft tissues. Multilevel degenerative changes of the lower lumbar spine. RAD/Chest PA and Lateral IMPRESSION: No acute findings. Electronically Signed: Shravan Esquivel, at 12:24 EDT ,
== END 2021-10-23 23:59 | disposition home or self-care (01) ==
LOC: RAD 11:47
PROVIDERS: PCP Family Medicine; Referring Provider Internal Medicine Cardiovascular Disease; Visit Provider Internal Medicine Cardiovascular Disease
DX: R07.9 Chest pain, unspecified (principal); I20.1 Angina pectoris with documented spasm; R00.1 Bradycardia, unspecified; I10 Essential (primary) hypertension; E78.00 Pure hypercholesterolemia, unspecified
CPT/HCPCS: 71046

== ENCOUNTER 2021-10-24 09:53 | Outpatient (CLI) | payer MEDICARE, SELFPAY ==
[2021-10-24 11:56] LABS: AST(SGOT) 20 U/L (15-37); Alanine Aminotransfer ALT/SGPT 37 U/L (16-61); Albumin, Serum 3.9 g/dL (3.2-5.0); Alkaline Phosphatase 73 U/L (45-117); Bilirubin, Direct 0.13 mg/dL (0.00-0.30); Cholesterol 154 mg/dL (200); Globulin 3.1 g/dL (2.2-4.2); High Density Lipoprotein 43 mg/dL; Triglycerides 118 mg/dL; Very Low Density Lipoprotein 24 mg/dL (5-40)
== END 2021-10-24 23:59 | disposition home or self-care (01) ==
LOC: LAB 09:55
PROVIDERS: PCP Family Medicine; Referring Provider Internal Medicine Cardiovascular Disease; Visit Provider Internal Medicine Cardiovascular Disease
DX: E78.00 Pure hypercholesterolemia, unspecified (principal)
CPT/HCPCS: 36415; 80061; 80076

== ENCOUNTER 2021-11-01 06:49 | Outpatient (CLI) | payer MEDICARE, SELFPAY ==
--- NOTE | 2021-11-01 19:16 | STRESSREP ---
Stress Test Report Date: 11-01-2021 Procedure: Exercise tolerance test/imaging study Indications: Chest pain; coronary artery vasospasm; bradycardia; hyperlipidemia; hypertension Consent: Per the patient Procedure: The patient exercised on a Alfred protocol for 7-minute completing Stage II and 1 minute of Stage III achieving a peak heart rate of 125 bpm (84% predicted maximal heart rate) with a peak blood pressure 168/72 mmHg and a peak MET capacity of 9 METs. The baseline ECG demonstrated sinus bradycardia. The peak exercise ECG demonstrated somatic/motion artifact with no obvious ECG changes. There were no cardiac dysrhythmias pretest, during exercise, or recovery. The functional capacity was considered good. There was no complaint of chest discomfort during exercise or recovery. The examination was discontinued secondary to dyspnea. Impression: 1. Technically adequate (percent predicted maximal heart rate greater than 85%) exercise tolerance test 2. Peak exercise ECG with no obvious ECG changes 3. There were no cardiac dysrhythmias pretest, during exercise, or recovery 4. Nuclear images pending Myocardial perfusion imaging study: Technique: The patient was injected with 11.3 mCi of technetium 99m Cardiolite and subsequently rest SPECT Cardiolite nuclear imaging was obtained in the horizontal long, vertical long, and short axis views. The patient exercised on a Alfred protocol for 7-minute completing Stage II and 1 minute of Stage III achieving a peak heart rate of 125 bpm (84% predicted maximal heart rate) with a peak blood pressure 168/72 mmHg and a peak MET capacity of 9 METs. The patient was injected with 33.3 mCi of technetium 99m Cardiolite and subsequently stress SPECT Cardiolite nuclear imaging was obtained in the horizontal long, vertical long, and short axis views. A gated Cardiolite study at peak stress was obtained. Interpretation: Rest and stress SPECT Cardiolite nuclear imaging status post realignment, normalization, and attenuation correction, demonstrates the appearance of relative uniform tracer uptake and myocardial perfusion appearing within normal limits. There is end systolic thickening and brightening. The gated Cardiolite study demonstrates myocardial thickening and inward wall motion. The reported LVEF is 72%. Impression: 1. Rest and stress SPECT Cardiolite nuclear imaging demonstrate relative uniform tracer uptake and myocardial perfusion appearing within normal limits. 2. The gated Cardiolite study reports an LVEF of 72%. This note was generated with [employer] software. It may contain incorrect words, spelling, and punctuation that were not noted in checking the note before signing.
== END 2021-11-01 23:59 | disposition home or self-care (01) ==
LOC: CVS 06:50
PROVIDERS: PCP Family Medicine; Visit Provider Internal Medicine Cardiovascular Disease
DX: R07.9 Chest pain, unspecified (principal); I20.1 Angina pectoris with documented spasm; R00.1 Bradycardia, unspecified; E78.00 Pure hypercholesterolemia, unspecified; I10 Essential (primary) hypertension
CPT/HCPCS: 78452; 93017; A9500; A4216

== ENCOUNTER → 2022-04-10 | Outpatient (CLI) | payer MEDICARE, SELFPAY ==
--- NOTE | 2022-04-10 10:10 | CT_ITS ---
STUDY: LOW DOSE CT LUNG CANCER SCREENING REASON FOR EXAM: Male, 72 years old. PULMONARY NODULE. History of prostate cancer. RADIATION DOSAGE (If Supplied By Facility): CTDIvol = ( 3.02 ) mGy, DLP = ( 102.32 ) mGycm TECHNIQUE: No contrast was administered. Low dose technique was utilized (average mAS-38 and kVp 120). 1.25 mm axial source images with a slice interval of 1.25-mm were reconstructed in lung windows. 2.5 mm axial source images with a slice interval of 2.5-mm were reconstructed in lung windows. 5.0 mm axial source images with a slice interval of 5.0-mm were reconstructed in soft tissue windows. COMPARISON: Comparison is made with prior study 05/01/2019. NODULES: Stable 7.1 mm rounded nodule having a groundglass appearance in the peripheral lateral aspect of the left upper lobe as seen on axial image #107 and coronal image #125.. Emphysema: Hyperinflation. Stable emphysematous changes. Stable linear scarring in the anterior lateral aspect of the right upper lobe. This abuts the pleural surface. Stable focal linear scarring in the anterior medial aspect of the right middle lobe. Endobronchial lesion: None Aorta: Atherosclerotic plaque formation of the aortic arch. CORONARY ARTERIES: Coronary artery calcification is not seen. Heart: Unremarkable. Pulmonary artery: Unremarkable Mediastinal nodes: Unremarkable Other chest and abdominal findings: CT/Low Dose CT Lung Screening IMPRESSION: Lung-RADS category 2 - Continue annual screening with LDCT in 12 months. IMPORTANT NOTES FOR USE: ACR Lung-RADS Version 1.1 Assessment Categories Release Date: 2018 Category: Coded 0-4 bases on nodule(s) with highest degree of suspicion. Negative screen is defined as categories 1 and 2; a positive screen is defined as categories 3 and 4. Category 3 and 4A nodules that are unchanged on interval CT should be coded as category 2, and individuals returned to screening in 12 months. Category 4X: Category 3 or 4 nodules with additional imaging findings that increase the suspicion of lung cancer, such as spiculation, GGN that doubles in size in 1 year, enlarged lymph notes, etc. Category Modifiers: S (significant finding unrelated to lung cancer) Electronically Signed: Ike Bravo MD at 12:19 EDT ,
== END | disposition home or self-care (01) ==
PROVIDERS: PCP Family Medicine; Referring Provider Family Medicine; Visit Provider Family Medicine
DX: Z12.2 Encounter for screening for malignant neoplasm of respiratory organs (principal); I70.0 Atherosclerosis of aorta; C61 Malignant neoplasm of prostate; R91.1 Solitary pulmonary nodule; Z87.891 Personal history of nicotine dependence
CPT/HCPCS: 71271

== ENCOUNTER → 2022-05-22 | Outpatient (CLI) | payer MEDICARE, SELFPAY ==
[2022-05-22 11:37] LABS: PSA,Total- Diagnostic 0.34 ng/mL (0.0-4.0)
== END | disposition home or self-care (01) ==
LOC: LAB 09:32
PROVIDERS: PCP Family Medicine; Visit Provider Urology
DX: C61 Malignant neoplasm of prostate (principal)
CPT/HCPCS: 36415; 84153

== ENCOUNTER → 2022-12-20 | Outpatient (CLI) | payer MEDICARE, SELFPAY ==
[2022-12-20 10:56] LABS: AST(SGOT) 22 U/L (15-37); Alanine Aminotransfer ALT/SGPT 35 U/L (16-61); Alkaline Phosphatase 64 U/L (45-117); Bilirubin, Direct 0.17 mg/dL (0.00-0.30); Cholesterol 145 mg/dL (200); Globulin 2.9 g/dL (2.2-4.2); High Density Lipoprotein 49 mg/dL; Protein, Total 6.9 g/dL (6.4-8.2); Triglycerides 58 mg/dL; Very Low Density Lipoprotein 12 mg/dL (5-40)
== END | disposition home or self-care (01) ==
LOC: LAB 09:12
PROVIDERS: PCP Family Medicine; Visit Provider Nurse Practitioner Family
DX: E78.00 Pure hypercholesterolemia, unspecified (principal)
CPT/HCPCS: 36415; 80061; 80076

== ENCOUNTER → 2023-05-22 | Outpatient (CLI) | payer MEDICARE, SELFPAY ==
[2023-05-22 11:12] LABS: PSA,Total- Diagnostic 0.43 ng/mL (0.0-4.0)
== END | disposition home or self-care (01) ==
LOC: LAB 09:57
PROVIDERS: PCP Family Medicine; Referring Provider Urology; Visit Provider Urology
DX: C61 Malignant neoplasm of prostate (principal)
CPT/HCPCS: 36415; 84153

== ENCOUNTER → 2024-03-30 | Outpatient (CLI) | payer MEDICARE, SELFPAY ==
--- NOTE | 2024-03-30 10:20 | LES_PTH ---
PATIENT: JUAN ANTONIO BRYANT LOC: [facility] U#:[id number] AGE/SX: 74/M ROOM: RE03/30/[address]: Dr. Artis Lemus DO : 1950 BED: DIS: 03/30/2024 SPEC #: [id number] RECD: 03/30/24 12:05 STATUS: BRETT TAJ #: [id number] RODRIGUEZ: 03/30/24 10:[address]: Artis Lemus DEPT: SURGICAL PATHOLOGY RECD BY: Lisa Kyle Tissues: Skin of abdomen, NOS Procedures: Special Stain Group I Surgery Specimen Level IV GMS Stain (control) HEADER OPERATION: Punch biopsy right abdomen PRE-OP DIAGNOSIS: Irritated nevus TISSUE SUBMITTED: 5.0mm punch biopsy of anterior abdomen MICROSCOPIC DIAGNOSIS Right anterior abdomen skin lesion, punch biopsy: Acanthosis, hyperkeratosis and suggestive of verrucous keratosis. Negative for malignancy. See comment. DANNI/ 03/31/2024 COMMENT Special stain for fungi is negative for organisms; matched controls is appropriate. Clinical correlation and appropriate follow up are necessary. Case has been reviewed in consultation with Dr. Reyes who concurs with the above diagnosis. IDC:AM MICROSCOPIC DESCRIPTION Slides are reviewed. GROSS DESCRIPTION Received in fixative is one container labeled with the patient's name and designated Right anterior abdomen. The specimen consists of a punch biopsy of guerrero-white skin measuring 0.4cm in diameter and 0.2cm in length. The specimen is inked, bisected, and submitted entirely in one cassette. 03/30/2024 TC:5 CPT:46713,66581
== END | disposition home or self-care (01) ==
PROVIDERS: PCP Family Medicine; Referring Provider Family Medicine; Visit Provider Family Medicine
DX: L83 Acanthosis nigricans (principal); L82.0 Inflamed seborrheic keratosis
CPT/HCPCS: 88305; 88312

== ENCOUNTER → 2024-05-19 | Outpatient (CLI) | payer MEDICARE, SELFPAY | END | disposition home or self-care (01) | LOC: LAB 09:28 | PROVIDERS: PCP Family Medicine; Referring Provider Nurse Practitioner; Visit Provider Nurse Practitioner | DX: C61 Malignant neoplasm of prostate (principal) | CPT/HCPCS: 36415; 84153 ==

== ENCOUNTER 2024-08-10 07:12 | Day surgery (SDC) | payer MEDICARE, SELFPAY ==
--- NOTE | 2024-07-30 09:13 | EKG12_ITS ---
Test Reason : PRE OP Blood Pressure : */* mmHG Vent. Rate : 57 BPM Atrial Rate : 57 BPM P-R Int : 190 ms QRS Dur : 84 ms QT Int : 396 ms P-R-T Axes : 61 32 47 degrees QTcB Int : 385 ms Sinus bradycardia Otherwise normal ECG Confirmed by JOHN OMER, NATALEE ([id number]), non linear editor RHONA YAN ([id number]) on 07/30/2024 12:46:51 PM Referred By: Antonio Winter Confirmed By: NATALEE LOPEZ MD
--- NOTE | 2024-07-31 08:29 | PAT.ANE_ITS ---
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 When Was Last Pacemaker Check QUESTION #4 FULL TEXT: You/Your Family Experience fever (hyperthermia) with Anesthesia Last Oral Intake Last Oral intake: Last Oral Intake NPO since Meds taken in AM with sips of water? Meds patient instructed to take am of surgery PONV PONV - unified communications engineer: PONV - unified communications engineer Female No 07/27/24 09:14 HX of Motion Sickness No 07/27/24 09:14 HX of N/V After Surgery No 07/27/24 09:14 Non-Smoker Yes 07/27/24 09:14 Duration of Surgery greater Yes 07/27/24 09:14 than 60 minutes Number of Risk Factors 2 07/27/24 09:14 PONV Score Moderate Risk 07/27/24 09:14 Height & Weight Height & Weight: Anesthesia: Height & Weight Height 5 ft 10.6 in 06/18/24 09:44 Respiratory Assessment Respiratory Assessment - unified communications engineer: Respiratory Tract Infection Hx - unified communications engineer Hx Respiratory Tract Infection No 07/27/24 09:14 STOP Sleep Apnea STOP Sleep Apnea - unified communications engineer: STOP Sleep Apnea - unified communications engineer Hx Hypertension Yes: CONTROLLED WITH MED 07/27/24 09:14 Hx Sleep Apnea No 07/27/24 09:14 CPAP No 03/14/20 14:57 BIPAP Do you snore loudly (louder No 07/27/24 09:14 than talking or can be heard Do you often feel tired/ No 07/27/24 09:14 fatigued/ sleepy during daytime? Has anyone observed you stop No 07/27/24 09:14 breathing during sleep? STOP Results Negative 07/27/24 09:14 QUESTION #5 FULL TEXT : Do you snore loudly (louder than talking or can be heard through closed doors)? 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 Specify any problems Hx of Preganancy in last 3 N/A 07/27/24 09:14 Months Nurse Filling Out Transfusion DSCHRIBER 07/27/24 09:14 & Questions: Date: 07/27/24 07/27/24 09:14 Time: :07/27/24 09:14 Patient unable to answer at this time (ie. confused, unrespo /Reproduction History /Reproductive History - unified communications engineer: /Reproductive Hx- unified communications engineer Hx Now No 07/27/24 09:14 Gestational Age (in weeks): EDC: Hx Hx Para Hx Section SAB No 07/27/24 09:14 PFSH Medical History (Updated 07/27/24 @ 09:27 by Batool Joyner) Wears hearing aid Wears glasses Wears dentures Cancer Hepatitis Back pain Former smoker Leg cramps History of echocardiogram History of stress test Cardiology follow-up encounter Bilateral inguinal hernia Chest pain, unspecified Basal cell carcinoma of lower lip Neoplasm of skin of lip Back problem History of left heart catheterization (LHC) (~12/14/09) History of prostate cancer Diverticulitis GERD (gastroesophageal reflux disease) Pure hypercholesterolemia Essential hypertension Bradycardia Coronary artery spasm Hyperlipidemia Hypertension Home Medications ?Medication ?Instructions ?Recorded ?Last Taken ?Type meloxicam 15 mg tablet 15 mg PO DAILY 04/17/16 06/18/20 History lisinopril 10 1 tab PO DAILY 10/20/18 06/18/20 History mg-hydrochlorothiazide 12.5 mg tablet omeprazole 20 mg capsule,delayed 20 mg PO DAILY 10/20/18 06/18/20 History release nitroglycerin 0.4 mg sublingual 0.4 mg sublingual Q5M PRN chest 12/20/22 Unknown Rx tablet pain #25 tabs ascorbic acid (vitamin C) 1,000 mg 1 g PO QDAY 06/18/24 Unknown History capsule Allergy/AdvReac Type Severity Reaction Status Date / Time Sulfa (Sulfonamide Allergy Unknown Verified 07/27/24 09:10 Antibiotics) Family History Father Myocardial infarction, Onset Age: 40 Heart disease Mother CVA (cerebral vascular accident) CAD (coronary artery disease) Heart disease Myocardial infarction Diabetes Brother Myocardial infarction Surgical History (Updated 07/27/24 @ 09:27 by Batool Joyner) Hx of colonoscopy History of carpal tunnel surgery History of rotator cuff surgery History of basal cell carcinoma excision History of left knee surgery History of knee surgery History of left heart catheterization History of appendectomy Social History Smoking Status: Former smoker how long ago did patient quit smokin alcohol intake: former year quit: 2006 substance use type: does not use caffeine: Yes Type: coffee Number of servings: 4 what type of physical activity do you participate in: none seatbelt use: always do you feel safe at home: Yes additional social history: DOES NOT TAKE ASPIRIN DOES NOT TAKE IBUPROFEN Audit: Pertinent Findings Pertinent Findings EKG Perinent findings: Sinus bradycardia otherwise normal 57 bpm 07/30/2024 Consult pertinent findings: Cardiology 12/20/2022 coronary artery spasm heart cath 2009 normal coronaries recent stress negative for ischemia chronic bradycardia essential hypertension stable Recommendation Anesthesia Recommendation Anesthesia recommendation: OPTIMIZED for anesthesia
[2024-08-10] VITALS (11 sets, daily range): BP systolic 129–154; BP diastolic 60–114; PULSE 53–84; RESP 14–18; TEMP 36.1–36.8; O2SAT 95–100; BMI 27.4
[2024-08-10 08:06] LABS: Hematocrit 41.9 % (40-54); Hemoglobin 14.1 g/dL (13.0-16.5); Mean Corp Hgb Conc 33.7 g/dL (32-36); Mean Corpuscular Hgb 29.4 pg (27.0-32.0); Mean Corpuscular Volume 87.5 fL (80-94); Mean Platelet Vol. 9.2 fl (6.2-12.0); Platelet Count 214 K/mm3 (150-450); RBC Distribution Width CV 13.4 % (11.6-14.6); RBC Distribution Width SD 43.4 fl (35.1-43.9); Red Blood Count 4.79 M/mm3 (4.6-6.2); White Blood Count 4.5 K/mm3 (4.4-11.0)
[2024-08-10] MEDS: 0.9% Normal Saline (1000mL) 1,000 ML 15 ML IV (08:10)
[2024-08-10 08:27] LABS: Anion Gap 5 (5-15); BUN 18 mg/dL (7-18); BUN/Creat Ratio 16.4 RATIO (10-20); Calcium,Total 8.9 mg/dL (8.5-10.1); Chloride 108 mmol/L (98-107); EST Glomerular Filtration Rate 69 mL/min (>60); Est Glom Filt Rate - Afr Amer 84 mL/min (>60); Estimated Creatinine Clearance 59.91 ml/min; Glucose 113 mg/dL (74-106); Potassium 3.7 mmol/L (3.5-5.1); Sodium Level 142 mmol/L (136-145)
--- NOTE | 2024-08-10 08:48 | PRE.ANES_ITS ---
ASA Classification* ASA Classification ASA Classification: 2 Assessment & Plan Anesthesia* Anesthesia Assessment Anesthesia Assessment: Discussed sedation and/or anesthesia options, risks, benefits, and alternatives with patient/parents/legal guardian/POA. Questions invited. The patient/parents/legal guardian/POA seems to understand and agrees to proceed with anesthesia plan. Reviewed the physical assessment, medical history, allergy history and patient home medications list prior to surgery/procedure/anesthetic and documented any changes. Performed airway and anesthesia risk assessments. Anesthesia Type Anesthesia Type: General History Source History Obtained from:: Patient and Chart Anesthesia Focused Assessment* Temperature: 97.7 F Pulse Rate: 55 Blood Pressure: 129/73 Respiratory Rate: 16 Pulse Ox: 100 Oxygen Delivery Method: Room Air Airway Assessment Mouth opens: >3 cm Mallampati Score: III Teeth Condition: Dentures (Patient has upper and lower dentures.) Neck Range of motion (ROM): Limited ROM (Slight decrease in extension) Comment: Full chase Focused Labs Anesthesia Preop lab: CBC WBC 4.5 K/mm3 (4.4-11.0) 08/10/24 07:53 RBC 4.79 M/mm3 (4.6-6.2) 08/10/24 07:53 Hgb 14.1 g/dL (13.0-16.5) 08/10/24 07:53 Hct 41.9 % (40-54) 08/10/24 07:53 Plt Count 214 K/mm3 (150-450) 08/10/24 07:53 CHEMISTRY Potassium 3.7 mmol/L (3.5-5.1) 08/10/24 07:53 Sodium 142 mmol/L (136-145) 08/10/24 07:53 BUN 18 mg/dL (7-18) 08/10/24 07:53 Creatinine 1.10 mg/dL (0.70-1.30) 08/10/24 07:53 Glucose 113 mg/dL (74-106) H 08/10/24 07:53 POC Glucose 111 mg/dL (70-110) H 12/03/16 07:09 TSH 2.36 uIU/mL (0.358-3.74) 12/16/18 08:05 COAG Pre-Assessment Diagnosis/Proposed Procedure Planned Operative Procedure(s): ROBOTIC BILAT INGUINAL HERNIA WITH MESH Anesthesia History Anesthesia History - still operator batch or continuous: Anesthesia History - still operator batch or continuous Hx Hospitalization No 07/27/24 09:14 Any Problems With Anesthesia No 07/27/24 09:14 Cholinesterase deficiency No 07/27/24 09:14 You/Your Family Experience No 07/27/24 09:14 fever (hyperthermia) with Relationship Recent Exposure to Contagious No 08/10/24 08:12 Disease Does patient have nerve No 07/27/24 09:14 stimulator Patient instructed to have device shut off --Does patient have Pacemaker No 08/10/24 08:12 or ICD? When Was Last Pacemaker Check QUESTION #4 FULL TEXT: You/Your Family Experience fever (hyperthermia) with Anesthesia Last Oral Intake Last Oral intake: Last Oral Intake NPO since 06:30 08/10/24 08:12 Meds taken in AM with sips of No 08/10/24 08:12 water? Meds patient instructed to take am of surgery Any additional information?: Yes NPO since: 06:30 (Patient water at 6:30 AM.) PONV PONV - still operator batch or continuous: PONV - still operator batch or continuous Female No 07/27/24 09:14 HX of Motion Sickness No 07/27/24 09:14 HX of N/V After Surgery No 07/27/24 09:14 Non-Smoker Yes 07/27/24 09:14 Duration of Surgery greater Yes 07/27/24 09:14 than 60 minutes Number of Risk Factors 2 07/27/24 09:14 PONV Score Moderate Risk 07/27/24 09:14 Height & Weight Height & Weight: Anesthesia: Height & Weight Height 5 ft 10.08 in 08/10/24 08:12 Weight: 87 kg 08/10/24 08:12 Body Mass Index (BMI) 27.4 08/10/24 08:12 Respiratory Assessment Respiratory Assessment - still operator batch or continuous: Respiratory Tract Infection Hx - still operator batch or continuous Hx Respiratory Tract Infection No 07/27/24 09:14 STOP Sleep Apnea STOP Sleep Apnea - still operator batch or continuous: STOP Sleep Apnea - still operator batch or continuous Hx Hypertension Yes: CONTROLLED WITH MED 07/27/24 09:14 Hx Sleep Apnea No 07/27/24 09:14 CPAP No 03/14/20 14:57 BIPAP Do you snore loudly (louder No 07/27/24 09:14 than talking or can be heard Do you often feel tired/ No 07/27/24 09:14 fatigued/ sleepy during daytime? Has anyone observed you stop No 07/27/24 09:14 breathing during sleep? STOP Results Negative 07/27/24 09:14 QUESTION #5 FULL TEXT : Do you snore loudly (louder than talking or can be heard through closed doors)? 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 Specify any problems Hx of Preganancy in last 3 N/A 07/27/24 09:14 Months Nurse Filling Out Transfusion DSCHRIBER 07/27/24 09:14 & Questions: Date: 07/27/24 07/27/24 09:14 Time: 09:16 07/27/24 09:14 Patient unable to answer at this time (ie. confused, unrespo /Reproduction History /Reproductive History - still operator batch or continuous: /Reproductive Hx- still operator batch or continuous Hx Now No 07/27/24 09:14 Gestational Age (in weeks): EDC: Hx Hx Para Hx Section SAB No 07/27/24 09:14 Active Medications Active Medications: Current Medications Generic Name Dose Route Start Last Admin Trade Name Freq PRN Reason Stop Dose Admin Cefazolin Sodium 2 gm/ N/A 20 mls @ 400 mls/hr 08/10/24 09:35 IV 08/10/24 09:37 PREOP ONE Sodium Chloride 1,000 mls @ 15 mls/hr 08/10/24 07:25 08/10/24 08:10 IV 08/15/24 20:44 15 mls/hr .Q48H HERB Administration Protocol PFSH Medical History Wears hearing aid Wears glasses Wears dentures Cancer Hepatitis Back pain Former smoker Leg cramps History of echocardiogram History of stress test Cardiology follow-up encounter Bilateral inguinal hernia Chest pain, unspecified Basal cell carcinoma of lower lip Neoplasm of skin of lip Back problem History of left heart catheterization (LHC) (~12/14/09) History of prostate cancer Diverticulitis GERD (gastroesophageal reflux disease) Pure hypercholesterolemia Essential hypertension Bradycardia Coronary artery spasm Hyperlipidemia Hypertension Home Medications ?Medication ?Instructions ?Recorded ?Last Taken ?Type meloxicam 15 mg tablet 15 mg PO DAILY 04/17/16 06/18/20 History lisinopril 10 1 tab PO DAILY 10/20/18 06/18/20 History mg-hydrochlorothiazide 12.5 mg tablet omeprazole 20 mg capsule,delayed 20 mg PO DAILY 10/20/18 06/18/20 History release nitroglycerin 0.4 mg sublingual 0.4 mg sublingual Q5M PRN chest 12/20/22 Unknown Rx tablet pain #25 tabs ascorbic acid (vitamin C) 1,000 mg 1 g PO QDAY 06/18/24 Unknown History capsule Allergy/AdvReac Type Severity Reaction Status Date / Time Sulfa (Sulfonamide Allergy Unknown Verified 07/27/24 09:10 Antibiotics) Family History Father Myocardial infarction, Onset Age: 40 Heart disease Mother CVA (cerebral vascular accident) CAD (coronary artery disease) Heart disease Myocardial infarction Diabetes Brother Myocardial infarction Surgical History Hx of colonoscopy History of carpal tunnel surgery History of rotator cuff surgery History of basal cell carcinoma excision History of left knee surgery History of knee surgery History of left heart catheterization History of appendectomy Social History Smoking Status: Former smoker how long ago did patient quit smokin alcohol intake: former year quit: 2006 substance use type: does not use caffeine: Yes Type: coffee Number of servings: 4 what type of physical activity do you participate in: none seatbelt use: always do you feel safe at home: Yes additional social history: DOES NOT TAKE ASPIRIN DOES NOT TAKE IBUPROFEN Review of Systems (Anesthesia) ROS Narrative System reviewed and no additional complaints, except as documented.
--- NOTE | 2024-08-10 09:17 | PCM.HP.BLA ---
History and Physical Date of Admission: 08/10/24 Intake Chief Complaint: Bilateral Inguinal Hernia Allergies Sulfa (Sulfonamide Antibiotics) Allergy (Verified 06/18/24 09:45) Unknown Medications ?Medication ?Instructions ?Recorded ?Confirmed ?Type meloxicam 15 mg tablet 15 mg PO DAILY 04/17/16 06/18/24 History lisinopril 10 1 tab PO DAILY 10/20/18 06/18/24 History mg-hydrochlorothiazide 12.5 mg tablet omeprazole 20 mg capsule,delayed 20 mg PO DAILY 10/20/18 06/18/24 History release nitroglycerin 0.4 mg sublingual 0.4 mg sublingual Q5M PRN chest 12/20/22 06/18/24 Rx tablet pain #25 tabs ascorbic acid (vitamin C) 1,000 mg 1 g PO QDAY 06/18/24 06/18/24 History capsule Assessment and Plan Assessment and Plan (1) Bilateral inguinal hernia: Status: Acute Qualifiers: Obstruction and gangrene presence: without obstruction or gangrene Recurrence: non-recurrent Qualified Code(s): K40.20 - Bilateral inguinal hernia, without obstruction or gangrene, not specified as recurrent Plan: Patient has bilateral inguinal hernias. I discussed robotic assisted laparoscopic bilateral inguinal hernia repair with mesh. I discussed the procedure in detail as well as the risks including but not limited to bleeding, infection, injury other organs such as the blood supply to the testicle or the testicle itself or bowel or bladder. Patient understands the risks and is wanted proceed. I also discussed mesh placement as well as the possibility of chronic groin pain or nerve injury. Patient understands the risks and is willing to proceed. Antonio Winter MD Pager: [facility] [address] [place] [address], [address] [place] [address] Office: 06/18/24 [phone] <Electronically signed by Antonio Winter MD> Date Antonio Winter MD cc: ~* Signed Intake Vital Signs 12/21/2307:32 06/18/2409:44 Height 5 ft 11 in 5 ft 10.6 in Weight: 197 lb 4 oz BMI 27.8 BP 135/84 H Blood Pressure Location Lt brachial Position Sitting Respiration 18 Pulse 59 L Pulse Source Monitor Temp 97.7 F L Temp Source Temporal Pulse Oximetry (%) 97 Oxygen Delivery Method room air Intake Visit Reasons: INGUINAL HERNIA Chief Complaint: Bilateral Inguinal Hernia 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 Is patient in pain?: No Allergies Sulfa (Sulfonamide Antibiotics) Allergy (Verified 06/18/24 09:45) Unknown Medications ?Medication ?Instructions ?Recorded ?Confirmed ?Type meloxicam 15 mg tablet 15 mg PO DAILY 04/17/16 06/18/24 History lisinopril 10 1 tab PO DAILY 10/20/18 06/18/24 History mg-hydrochlorothiazide 12.5 mg tablet omeprazole 20 mg capsule,delayed 20 mg PO DAILY 10/20/18 06/18/24 History release nitroglycerin 0.4 mg sublingual 0.4 mg sublingual Q5M PRN chest 12/20/22 06/18/24 Rx tablet pain #25 tabs ascorbic acid (vitamin C) 1,000 mg 1 g PO QDAY 06/18/24 06/18/24 History capsule Have you fallen in the past year?: No PFSH Medical History (Updated 06/18/24 @ 09:43 by Steph Perez) Bilateral inguinal hernia Chest pain, unspecified Basal cell carcinoma of lower lip Neoplasm of skin of lip Hearing problem Back problem History of left heart catheterization (LHC) (~12/14/09) History of prostate cancer Diverticulitis GERD (gastroesophageal reflux disease) Pure hypercholesterolemia Essential hypertension Bradycardia Coronary artery spasm Dyspnea Chest pain Hyperlipidemia Hypertension Surgical History History of carpal tunnel surgery History of rotator cuff surgery History of basal cell carcinoma excision History of left knee surgery History of knee surgery History of left heart catheterization History of right knee surgery (~11/2017) History of appendectomy Family History Father Myocardial infarction, Onset Age: 40 Heart diseaseMother CVA (cerebral vascular accident) CAD (coronary artery disease) Heart disease Myocardial infarction DiabetesBrother Myocardial infarction Social History (Reviewed 06/18/24 @ 09:43 by Steph Vázquez Smoking Status: Former smoker how long ago did patient quit smokin alcohol intake: former year quit: 2006 substance use type: does not use caffeine: Yes Type: coffee Number of servings: 4 what type of physical activity do you participate in: none seatbelt use: always do you feel safe at home: Yes additional social history: DOES NOT TAKE ASPIRIN DOES NOT TAKE IBUPROFEN HPI HPI HPI: Patient is a 74-year-old male here for bilateral inguinal hernias. Patient saw me 2 years ago and put it off until now. He reports they are bothering him more. He denies any fevers or chills or nausea or vomiting. No radiation of pain. He reports the left is more bothersome than the right ROS General General: No weight change, appetite, fatigue, colon cancer, breast cancer or weakness HEENT HEENT: No difficulty swallowing, eye injury, eye surgery, swollen glands or hoarseness Endo Endocrine: No thyroid disease, diabetes mellitus, thyroid cancer, Hair loss, heat intolerance or cold intolerance Skin Skin: Yes changing moles Additional Details: Right groin area Breast Breast: No left breast lump, right breast lump, nipple discharge, breast pain, abnormal mammogram, abnormal US or breast enlargement Musc Musculoskeletal: No back problems, arthritis, rheumatoid arthritis, gout or joint pain Cardio Cardiovascular: No murmur, pacemaker, heart disease, atrial fibrillation, high blood pressure, heart attack, heart stent, palpitations, shortness of breat with exertion or chest pain Psych Psychiatric: No depression, anxiety or hearing voices Resp Respiratory: No shortness of breath, No sleep apnea, No cough, No COPD, No asthma, No emphysema and No wheezing Gastro Gastrointestinal: No abdominal pain, No nausea or vomiting, No diarrhea, No constipation, No blood in stool, Yes acid reflux, No hemorrhoids, No ulcers, No gallbladder problem and No black,tarry stools Kal Hematologic: No blood thinners, No blood disorders, No bleeding, No anemia and No blood clots Neuro Neurologic: No system reviewed and no additional complaints, except as documented, No as per HPI, No abnormal gait, No abnormal hearing, No abnormal movements, No abnormal speech, No behavioral changes, No burning sensations, No confusion, No convulsions, No disequilibrium, No dizziness, No localized weakness, No frequent falls, No headache(s), No lack of coordination, No loss of vision, No memory loss, No numbness, No other visual disturbances, No radicular pain, No restless legs, No sensory deficit, No syncope, No tingling, No tremor(s), No weakness and No other Exam Const General: cooperative Orientation: alert and oriented x3 HENMT Head: normal to inspection Neck Neck: normal visual inspection and full ROM Chest Chest palpation & inspection: normal inspection of the chest Resp Effort & Inspection: normal respiratory effort Auscultation: clear to auscultation bilaterally Cardio Rate: regular rate Rhythm: regular rhythm GI Inspection: non-distended Palpation: soft, hernia indirect inguinal bilaterally and nontender Skin General: no rashes or lesions noted Neuro General: patient alert and patient oriented x3 Extrem General: full ROM Psych Appearance: grossly normal Mental Status: mental status grossly normal I have examined the patient and the H&P has been reviewed. There are no clinical changes since date of exam.
[2024-08-10] MEDS: Cefazolin 2 GM in Syringe IV (09:42)
[2024-08-10] MEDS: Bupivacaine Mpf 0.5% 30 ML VIAL (10:54)
--- NOTE | 2024-08-10 11:05 | PCM.POST.ANE ---
Anesthesia: Postop Eval I Current Vital Signs Temperature: 97 F Pulse Rate: 84 Blood Pressure: 154/89 Respiratory Rate: 14 Pulse Ox: 100 Oxygen Delivery Method: Simple Mask Oxygen Flow Rate (L/min): 6 Assessment Airway patent: Yes Spontaneous unlabored respirations: Yes Mental status: Awake nausea: No Vomiting: No Anesthesia Complication: No Fluid Hydration Crystalloid volume administer (ml): 1,000 Total IV fluid infused: 1,000 Progress Note Anesthesia document: Postop Eval 1 completed: Yes
--- NOTE | 2024-08-10 11:28 | PCM.OPRPT ---
Operative Report (Standard) Operative Information Date of Procedure: 08/10/24 Pre-Operative Diagnosis: Bilateral inguinal hernias Post-Operative Diagnosis: Bilateral inguinal hernias Surgery/Procedure Performed: Robotic assisted laparoscopic bilateral inguinal hernia repair with mesh data entry operator: Yes Quarry Manager: Jeri Jha Tasks completed by certified surgical tech/first assistant: Opening, Closing and Trocar Type of Anesthesia: General/Regional RN Documented Start/Stop Times: Operation Date: 08/10/24 09:35 Case Time Into Pre-Op 08/10/24 07:24 Out of Pre-Op 08/10/24 09:40 Anesthesia Start 08/10/24 09:42 Into Room 08/10/24 09:42 Procedure Start 08/10/24 09:59 Procedure End 08/10/24 10:58 Anesthesia End 08/10/24 11:01 Out of Room 08/10/24 11:01 Into Recovery 08/10/24 11:05 Procedure Start Time: 09:59 Procedure Stop Time: 10:58 Select all DRAINS/GRAFTS/IMPLANTS that apply: Implanted device Implanted device details: ProGrip mesh bilaterally Estimated Blood Loss: 5 Specimen collected: No Description of surgery: Patient was brought back to the operating room and general anesthesia was induced. The abdomen was prepped and draped in usual sterile fashion. Midline incision was made and the fascia was grasped and elevated and a Veress needle was placed into the abdomen. A drop test was performed. The abdomen is then insufflated to 15 mmHg. The needle was removed and a port was placed. The camera was placed into the abdomen there were no injuries from entry. Patient was placed in Trendelenburg position and the pelvic region was inspected. The patient had bilateral direct inguinal hernias. Under direct visualization a right lateral 8 mm ports placed as well as a left lateral 8 mm port and then the robot was docked. Using lecture cautery scissors the adhesions in the right lower quadrant were taken down. Next an incision was made in the peritoneum and dissection was carried inferiorly the hernia sac was dissected free and reduced. Next the hernia was reapproximated using a running #1 strata fix suture. Next a ProGrip mesh was unfolded over the right groin completely covering the defect. The peritoneum was then reapproximated using a running 3 OV lock suture. Next attention was paid to the left side. In the same fashion a curvilinear incision was made in the peritoneum and this was dissected inferiorly until the hernia was reduced. This hernia was also closed with a running #1 strata fix suture. Next a ProGrip mesh was placed in the same fashion over the hernia on the left and unfolded. The peritoneum was then reapproximated using a running 3 OV lock suture completely covering the mesh. Both meshes were completely covered at the end of the case. The abdomen was allowed to desufflate and the ports were removed. The incisions were injected with local anesthetic and closed with interrupted 4-0 Monocryl sutures. Steri-Strips and bandages were applied. Scrotum was checked at the end of the case and contained both testicles. Patient was taken to PACU in stable condition and tolerated the procedure well. Surgical Findings: Bilateral direct inguinal hernias Complications Complications: No Admit VTE Documentation VTE Mechan Device Prophylaxis: SCD's
--- NOTE | 2024-08-10 11:32 | DCINST_ITS ---
Discharge Instructions Procedure Hernia Diet Discharge Diet: Light diet - advance as tolerated Activity Discharge Activity: May Not Drive (for 2-3 days or while taking narcotic pain meds.) and May Shower (with the bandage in place 1-2 days after surgery.) Lifting Restrictions: 20 pounds for 6 weeks. Additional Activity Instructions:: Climbing stairs is fine, walking is encouraged. Sitting in bed may be uncomfortable. Sitting up using your lateral muscles (sitting up sideways) is usually more comfortable. Do not drive, work heavy equipment of sign legal documents for 24 hours. If your hernia repair was an ingunial repair, you may have scrotal swelling, an ice pack and/or athletic support can provide more comfort. Pain medications may cause nausea, you should typically eat light foods as you take your pain medications. Pain medications may also cause constipation. If you have difficulty with this, discuss with your doctor. Alternate ibuprofen and Tylenol for pain control, oxycodone for breakthrough pain. Dressing / Incision Call your doctor if your incision/area has: Continuous Slow Oozing, Sudden Increased Bleeding, Increased Pain/ Swelling, Increased Redness and Foul Smelling Discharge Call your doctor if you observe: Fever of 101 or Higher Suture Line Care: Avoid Pulling/Pushing and Avoid Pinching/Bending Remove Dressing in: 2 days (Remove clear bandages in 2 days, remove Steri-Strips in 7 to 10 days.) Follow Up Care Please Follow Up With: Antonio Winter MD When: Please call to schedule 2 week follow up appointment. [phone] Test Results: Test results from this visit will be discussed in further detail at your follow- up appointment, if applicable. Discharge Plan Admission Attending Provider: Antonio Winter Primary Care Provider: Artis Lemus Instructions Print Language: Slovenian Discharge Orders/Prescriptions Prescriptions: New oxycodone 5 mg Tablet 5 - 10 mg PO Q4H PRN PRN (Reason: Pain Score 4-10) 5 Days Qty: 10 0RF No Action omeprazole 20 mg capsule,delayed release(DR/EC) 20 mg PO DAILY lisinopril-hydrochlorothiazide 10-12.5 mg tablet 1 tab PO DAILY nitroglycerin 0.4 mg tablet, sublingual 0.4 mg SUBLINGUAL Q5M PRN (Reason: chest pain) Qty: 25 6RF ascorbic acid (vitamin C) 1,000 mg capsule 1 g PO QDAY meloxicam 15 MG tablet 15 mg PO DAILY Referrals / Follow Up: Artis Lemus, [Primary Care Provider] - Disposition Disposition (needs filled in before D/C Order can be placed): Home, Self Care
[2024-08-10] MEDS: oxyCODONE 5 MG Tablet PO (12:24)
--- NOTE | 2024-08-10 14:01 | POSTOPAN2_ITS ---
Anesthesia Postop Eval I Sum Postop Eval Completion status Anesthesia document: Postop Eval 1 completed: Yes Anesthesia Postop Eval I Summary Anesthesia Postop Eval I Summary: Anesthesia Postop Eval I: Assessment Summary Airway patent Yes 08/10/24 11:07 COMPLIANCE AND CONTROL ANALYST.HBARR Spontaneous unlabored Yes 08/10/24 11:07 COMPLIANCE AND CONTROL ANALYST.HBARR respirations Mental status Awake 08/10/24 11:07 COMPLIANCE AND CONTROL ANALYST.HBARR nausea No 08/10/24 11:07 COMPLIANCE AND CONTROL ANALYST.HBARR Vomiting No 08/10/24 11:07 COMPLIANCE AND CONTROL ANALYST.HBARR Anesthesia Postop Eval I: Fluid Summary Crystalloid volume administer 1,000 08/10/24 11:07 COMPLIANCE AND CONTROL ANALYST.HBARR (ml) Colloids volume administered ( ml) Blood Product volume administered (ml) Total IV fluid infused 1,000 08/10/24 11:07 COMPLIANCE AND CONTROL ANALYST.HBARR Anesthesia Postop Eval I: Summary Notes Anesthesia Complication No 08/10/24 11:07 COMPLIANCE AND CONTROL ANALYST.HBARR Anesthesia Complication Comment: Post-operative progress note Anesthesia: Postop Eval II Evaluation Mental status: Awake and Calm Pain Level: 1 nausea: No Vomiting: No Complications Anesthesia Complication: No
--- NOTE | 2024-08-10 14:01 | PCM.POSTANE2 ---
Anesthesia Postop Eval I Sum Postop Eval Completion status Anesthesia document: Postop Eval 1 completed: Yes Anesthesia Postop Eval I Summary Anesthesia Postop Eval I Summary: Anesthesia Postop Eval I: Assessment Summary Airway patent Yes 08/10/24 11:07 LICENSED PROFESSIONAL COUNSELOR.HBARR Spontaneous unlabored Yes 08/10/24 11:07 LICENSED PROFESSIONAL COUNSELOR.HBARR respirations Mental status Awake 08/10/24 11:07 LICENSED PROFESSIONAL COUNSELOR.HBARR nausea No 08/10/24 11:07 LICENSED PROFESSIONAL COUNSELOR.HBARR Vomiting No 08/10/24 11:07 LICENSED PROFESSIONAL COUNSELOR.HBARR Anesthesia Postop Eval I: Fluid Summary Crystalloid volume administer 1,000 08/10/24 11:07 LICENSED PROFESSIONAL COUNSELOR.HBARR (ml) Colloids volume administered ( ml) Blood Product volume administered (ml) Total IV fluid infused 1,000 08/10/24 11:07 LICENSED PROFESSIONAL COUNSELOR.HBARR Anesthesia Postop Eval I: Summary Notes Anesthesia Complication No 08/10/24 11:07 LICENSED PROFESSIONAL COUNSELOR.HBARR Anesthesia Complication Comment: Post-operative progress note Anesthesia: Postop Eval II Evaluation Mental status: Awake and Calm Pain Level: 1 nausea: No Vomiting: No Complications Anesthesia Complication: No
== END 2024-08-10 13:31 | disposition home or self-care (01) ==
LOC: SDC 07:13 → AC 07:14
PROVIDERS: Anesthesiology; PCP Family Medicine; Referring Provider Surgery; Visit Provider Surgery
PROC: (CPT 49650; principal; 2024-08-10 09:15)
DX: K40.20 Bilateral inguinal hernia, without obstruction or gangrene, not specified as recurrent (principal); I10 Essential (primary) hypertension; K21.9 Gastro-esophageal reflux disease without esophagitis; E78.00 Pure hypercholesterolemia, unspecified; Z88.2 Allergy status to sulfonamides; Z87.19 Personal history of other diseases of the digestive system; Z90.49 Acquired absence of other specified parts of digestive tract; Z79.899 Other long term (current) drug therapy; Z87.891 Personal history of nicotine dependence
CPT/HCPCS: 49650; S2900; 00840; 80048; 85027; 93005; J2405

== ENCOUNTER → 2024-11-23 | Outpatient (CLI) | payer MEDICARE, SELFPAY ==
--- NOTE | 2024-11-23 15:52 | RAD_ITS ---
PROCEDURE: CHEST PA AND LATERAL 11/23/2024 REASON FOR EXAM: COUGH, CHEST PAIN TECHNIQUE: Frontal and lateral views of the chest. COMPARISON: None available FINDINGS: The lungs appear clear. Pulmonary vascularity appears within limits. No pleural effusion. The cardiac and mediastinal contours appear within limits. Atherosclerotic change at the aortic arch. Diffuse idiopathic skeletal hyperostosis mid to lower thoracic spine. RAD/Chest PA and Lateral IMPRESSION: No evidence of acute disease. Reading Location: [id number]
== END | disposition home or self-care (01) ==
LOC: MTRAD 15:44
PROVIDERS: PCP Family Medicine; Referring Provider Family Medicine; Visit Provider Family Medicine
DX: R07.9 Chest pain, unspecified (principal); R05.9 Cough, unspecified
CPT/HCPCS: 71046

== ENCOUNTER → 2025-04-01 | Outpatient (CLI) | payer MEDICARE, SELFPAY ==
[2025-04-01 12:36] LABS: Hematocrit 41.2 % (40-54); Hemoglobin 13.8 g/dL (13.0-16.5); Immature Granulocytes Count 0.100 X10^3/uL (0.0-0.0); Mean Corp Hgb Conc 33.5 g/dL (32-36); Mean Corpuscular Volume 89.0 fL (80-94); Mean Platelet Vol. 10.1 fl (6.2-12.0); NRBC Flagged by Analyzer 0 % (0-5); Platelet Count 228 K/mm3 (150-450); RBC Distribution Width CV 13.2 % (11.6-14.6); RBC Distribution Width SD 42.7 fl (35.1-43.9); Red Blood Count 4.63 M/mm3 (4.6-6.2); White Blood Count 5.2 K/mm3 (4.4-11.0)
[2025-04-01 13:50] LABS: AST(SGOT) 19 U/L (<=37); Alanine Aminotransfer ALT/SGPT 20 U/L (<=46); Albumin, Serum 4.3 g/dL (3.4-4.8); Alkaline Phosphatase 64 U/L (40-129); Anion Gap 11 (5-15); BUN 21 mg/dL (4-19); BUN/Creat Ratio 18.4 RATIO (10-20); Calcium,Total 9.5 mg/dL (7.6-11.0); Carbon Dioxide 27.7 mmol/L (21.0-32.0); Chloride 102 mmol/L (98-108); Globulin 2.1 g/dL (2.2-4.2); Glucose 113 mg/dL (70-99); Potassium 4.5 mmol/L (3.3-5.1)
[2025-04-01 14:22] LABS: PSA,Total- Diagnostic 0.57 ng/mL (0.00-4.00); Vitamin B12 344 pg/mL (180-914); Vitamin D,25 Hydroxy 38.2 ng/mL (30-100)
== END | disposition home or self-care (01) ==
PROVIDERS: PCP Family Medicine; Visit Provider Family Medicine
DX: I10 Essential (primary) hypertension (principal); C61 Malignant neoplasm of prostate; E55.9 Vitamin D deficiency, unspecified; R53.83 Other fatigue
CPT/HCPCS: 36415; 80053; 82306; 82607; 84153; 84443; 85025

== ENCOUNTER → 2025-05-31 | Outpatient (CLI) | payer MEDICARE, SELFPAY ==
[2025-05-31 10:55] LABS: PSA,Total- Diagnostic 0.41 ng/mL (0.00-4.00)
== END | disposition home or self-care (01) ==
PROVIDERS: PCP Family Medicine; Referring Provider Urology; Visit Provider Urology
DX: C61 Malignant neoplasm of prostate (principal)
CPT/HCPCS: 36415; 84153